=== PATIENT | female | born 1940 | race Caucasian/White ===

== ENCOUNTER 2018-12-23 12:11 | Inpatient (IN) | payer MEDICAID, MEDICARE ==
[~2018-12-23] VITALS: Ht 167.6 cm; Wt 75.7 kg
[~2018-12-23 12:11] MED LIST: ACET-868 PO; ASPI-1152 PO; ATOR40TA PO; BUSP15TA3 PO; CHOL100044 PO; DOCU-141 PO; GLIP10TA11 PO; GLIP5TAB13 PO; METF-440 PO; METO25TA6 PO; SENN-168 PO
--- NOTE | 2018-12-23 12:18 | NUR ---
DR SAXENA AT BEDSIDE FOR EVAL.
--- NOTE | 2018-12-23 12:22 | NUR ---
PT LESLEY TATUM [facility]. PER REPORT, WAS NOTICED TO BE LETHARGIC. UPON ACCUCHECK, BG WAS AROUND 20 WAS GIVEN D10. IMPROVED TO 218. PT GOWNED AND PLACED ON MONITOR. VSS. AWAITING MD ALSTON.
--- NOTE | 2018-12-23 12:34 | NUR ---
RADIOLOGY AT BEDSIDE FOR CHEST XRAY.
[2018-12-23 12:42] LABS: BASOPHILS # (AUTO) 0.1 /CMM (0.0-0.2); EOSINOPHILS % (AUTO) 0.9 % (0.0-6.0); HEMATOCRIT 23 % (33-45); HEMOGLOBIN 7.6 g/dL (11.5-14.8); LYMPHOCYTES # (AUTO) 0.9 /CMM (0.8-4.8); LYMPHOCYTES % (AUTO) 10.4 % (20.0-44.0); MEAN CORPUSCULAR HGB CONC 33 g/dl (31.0-36.0); MEAN CORPUSCULAR VOLUME 87 fL (82-100); MONOCYTES # (AUTO) 0.6 /CMM (0.1-1.30); MONOCYTES % (AUTO) 7.4 % (2.0-12.0); NEUTROPHILS # (AUTO) 6.7 /CMM (1.8-8.9); NEUTROPHILS % (AUTO) 80.3 % (43.0-81.0); PLATELET COUNT (AUTO) 275 /CMM (150-450); RED BLOOD CELL COUNT(AUTO) 2.66 MIL/uL (4.0-5.2); WHITE BLOOD COUNT (AUTO) 8.3 K/uL (4.3-11.0)
[2018-12-23 12:54] LABS: ALANINE AMINOTRANSFERASE 14 U/L (12-78); ALBUMIN 3.2 g/dL (3.4-5.0); ALKALINE PHOSPHATASE 58 U/L (46-116); ASPARTATE AMINOTRANSFERASE 19 U/L (15-37); BILIRUBIN,TOTAL 0.1 mg/dL (0.2-1.0); CALCIUM, SERUM 9.1 mg/dL (8.5-10.1); CARBON DIOXIDE 18 mmol/L (21-32); CHLORIDE 106 mmol/L (98-107); CREATININE 1.8 mg/dL (0.6-1.3); GLUCOSE 162 mg/dL (74-106); POTASSIUM 5.2 mmol/L (3.5-5.1); SODIUM SERUM 136 mmol/L (136-145); TOTAL PROTEIN, SERUM 6.9 g/dL (6.4-8.2); UREA NITROGEN, BLOOD 53 mg/dL (7-18)
[2018-12-23 13:01] LABS: APPEARANCE,URINE Clear (CLEAR); BILIRUBIN,URINE Negative (NEGATIVE); BLOOD, URINE Negative Ery/uL (NEGATIVE); COLOR,URINE Yellow (YELLOW); KETONES,URINE Negative (NEGATIVE); LEUKOCYTE ESTERASE ,URINE Negative (NEGATIVE); NITRITE, URINE Negative (NEGATIVE); PROTEIN,URINE Trace mg/dl (NEGATIVE); UGLUCOSE Negative (NEGATIVE); UROBILINOGEN,URINE 0.2 EU/dL (0.2)
[2018-12-23 13:08] LABS: BACTERIA,URINE None seen /HPF (None Seen); RBC,URINE NONE SEEN /HPF (0-2); SQUAMOUS EPITHELIAL CELL,UR Few /HPF (None Seen); WBC,URINE NONE SEEN /HPF (0-3)
[2018-12-23] MEDS ORDERED: SERT50TA PO (13:33)
[2018-12-23] MEDS ORDERED: MIRT15TA7 PO (13:33)
[2018-12-23] MEDS ORDERED: HYDR-4384 PO (13:33)
--- NOTE | 2018-12-23 13:53 | NUR ---
REPORT GIVEN TO JAZMIN GALLEGOS. AWAITING TRANSFER.
[2018-12-23] MEDS ORDERED: IV NS 0.9% 1,000 ML BAG IV ONE (14:00)
[2018-12-23] MEDS ORDERED: MAG HYDROX/AL HYDROX/SIMETH 30 ML UDC PO PRN (14:30)
[2018-12-23] MEDS ORDERED: ACETAMINOPHEN 325 MG TABLET PO PRN ×2 (14:30)
[2018-12-23] MEDS ORDERED: ONDANSETRON HCL/PF 4 MG/2 ML VIAL IVP PRN (14:30)
[2018-12-23] MEDS ORDERED: HYDROCODONE/APAP 5/325MG 1 EACH TABLET PO PRN (14:30)
[2018-12-23] MEDS ORDERED: Z GUARD REMEDY 2 OZ OINT TP PRN (14:30)
--- NOTE | 2018-12-23 14:30 | NUR ---
RN NOTE PATIENT TRANSFERED FROM ER. NO S/S OF HYPOGLYGEMIA. PATIET ALERT X2-3. DAUGHTER AT BEDSIDE. NO WOUNDS PRESENT ON ADMISSION. NO SCABS PATIENT VITALS WITHIN NORMAL LIMITS. AWAITING ORDERS FROM MD. SAFETY MEASURES IN PLACE. CONTINUE TO MONITOR.
[2018-12-23] MEDS ORDERED: DEXTROSE 50%-WATER 50 ML DISP.SYRIN IV PRN (15:00)
[2018-12-23] MEDS: CHOLECALCIFEROL 1,000 UNIT TABLET (VIT D3) PO SCH (15:37)
[2018-12-23] MEDS: MIRTAZAPINE 15 MG TABLET PO SCH ×2 (15:37→22:06)
[2018-12-23] MEDS: ATORVASTATIN 40 MG TABLET PO SCH (15:37)
[2018-12-23] MEDS: SERTRALINE HCL 50 MG TABLET PO SCH (15:37)
[2018-12-23] MEDS: DOCUSATE SODIUM 100 MG CAPSULE PO SCH ×2 (15:37→18:00)
[2018-12-23] MEDS: ASPIRIN EC 81 MG TABLET.DR PO SCH (15:37)
[2018-12-23] MEDS: METOPROLOL TARTRATE 25 MG TABLET PO SCH ×2 (15:38→17:10)
--- NOTE | 2018-12-23 15:38 | NUR ---
SHOPPING INSPECTOR NOTE RN SCANNED MEDICATION EARLY BECAUSE THERE IS NO COMPUTER AVAILABLE. RN WILL ADMINISTER THE MEDICATION AT 1700 IN ONE HOUR AND 20 MINUTES.
[2018-12-23] MEDS: BLOOD SUGAR DIAGNOSTIC 1 EACH STRIP IN SCH ×3 (15:58→22:04)
[2018-12-23 16:42] VITALS: BP 145/64
[2018-12-23 17:00] VITALS: BP 136/70
[2018-12-23 17:41] LABS: IRON, SERUM 39 ug/dl (50-175); TOTAL IRON BINDING CAPACITY 345 ug/dl (250-450)
[2018-12-23 19:13] LABS: CREATININE, URINE 109.9 MG/DL (30.0-125.0); URINE TOTAL PROTEIN 11.8 mg/dL (0-11.9)
[2018-12-23] MEDS: INSULIN REGULAR, HUMAN 100 UNIT/ML 3 ML VIAL SQ PRN ×2 (19:13→22:10)
--- NOTE | 2018-12-23 19:25 | NUR ---
RN CLOSING NOTE PATIENT ALERT AND ORITND X2-3. SKIN INTACT, SIDE RAILS UP. NO EPISODES OF HYPOGLYCEMIA THIS SHIFT. BLOOD SUGAR PROTCAL FOLLOWED PER MD ORDER. PATIENT STABLE, SAFETY MEASURES IN PLACE. UPDATE DAUGHTER PHONE NUMBER IN REPORT SHEET AND CHART. Addendum: 12/24/18 at 0215 by ELVIRA WRIGHT RN RN OPENING NOTE: PATIENT ALERT AND ORITND X2-3. SKIN INTACT, SIDE RAILS UP. NO EPISODES OF HYPOGLYCEMIA THIS SHIFT. BLOOD SUGAR PROTCAL FOLLOWED PER MD ORDER. PATIENT STABLE, SAFETY MEASURES IN PLACE. WILL CONTINUE TO MONITER.
--- NOTE | 2018-12-23 19:49 | NUR ---
RN CLOSING NOTE PATIENT ALERT AND ORITND X2-3. SKIN INTACT, SIDE RAILS UP. BLOOD SUGAR PROTCAL FOLLOWED PER MD ORDER. PATIENT STABLE, SAFETY MEASURES IN PLACE. WILL CONTINUE TO MONITER AND FOLLOW OUT PLAN OF CARE. .
[2018-12-23 20:00] VITALS: BP 124/54
[2018-12-23 21:00] VITALS: BP 124/54
[2018-12-23 22:00] VITALS: BP 124/54
[2018-12-24] VITALS (8 sets, daily range): BP systolic 98–124; BP diastolic 49–79
--- NOTE | 2018-12-24 06:20 | NUR ---
PT REFUSED BLOOD DRAW. IN BED ASLEEP STATES DOESNT WANT TO BE BOTHERED. TOLD LAB TO COME BACK AT 830 AM.
[2018-12-24] MEDS: IV D5/0.45 NACL 1,000 ML IV PRN (06:27)
--- NOTE | 2018-12-24 06:46 | NUR ---
RN CLOSING NOTE: PATIENT ALERT AND ORITND X2-3. SKIN INTACT, SIDE RAILS UP. MONITERED BLOOD SUGAR PROTCAL FOLLOWED PER MD ORDER. PATIENT STABLE, SAFETY MEASURES IN PLACE. WILL CONTINUE TO MONITER AND FOLLOW OUT PLAN OF CARE.
--- NOTE | 2018-12-24 07:20 | NUR ---
RN INITIAL NOTES PATIENT IN BED, ASLEEP BUT EASILY AROUSABLE. ON 2L NC. PER NOC SHIFT, SOMETIMES PATIENT REMOVES THE NC AND STILL SATS >90%. ON TELE MONITOR, SR. HAS LEFT HAND #20 WITH D5 HALF NS RUNNING AT 75 ML/HR. PENDING OB STOOL. PATIENT HAS NO COMPLAINS OF ANY PAIN NOR SOB AT THIS TIME. CALL LIGHT WITHIN REACH. WILL CONTINUE TO MONITOR
[2018-12-24] MEDS: BLOOD SUGAR DIAGNOSTIC 1 EACH STRIP IN SCH ×4 (08:00→21:03)
--- NOTE | 2018-12-24 08:00 | NUR ---
RN NOTES BS 134, EVEN WITH D5 HALF NS RUNNING AT 75 ML/HR - INSULIN NOT ADMINISTERED, PATIENT REFUSING TO EAT BREAKFAST
[2018-12-24] MEDS: ATORVASTATIN 40 MG TABLET PO SCH (08:55)
[2018-12-24] MEDS: ASPIRIN EC 81 MG TABLET.DR PO SCH (08:56)
[2018-12-24] MEDS: busPIRone 5 MG TABLET PO SCH (08:56)
[2018-12-24] MEDS: SERTRALINE HCL 50 MG TABLET PO SCH (08:56)
[2018-12-24] MEDS: CHOLECALCIFEROL 1,000 UNIT TABLET (VIT D3) PO SCH (08:56)
[2018-12-24] MEDS: DOCUSATE SODIUM 100 MG CAPSULE PO SCH ×2 (08:56→17:33)
[2018-12-24] MEDS: METOPROLOL TARTRATE 25 MG TABLET PO SCH ×2 (08:57→17:34)
[2018-12-24 11:18] LABS: BASOPHILS # (AUTO) 0.1 /CMM (0.0-0.2); BASOPHILS % (AUTO) 0.9 % (0.0-2.0); HEMATOCRIT 22 % (33-45); LYMPHOCYTES # (AUTO) 1.5 /CMM (0.8-4.8); LYMPHOCYTES % (AUTO) 21.1 % (20.0-44.0); MEAN CORPUSCULAR HGB CONC 32 g/dl (31.0-36.0); MEAN CORPUSCULAR VOLUME 86 fL (82-100); MONOCYTES # (AUTO) 0.8 /CMM (0.1-1.30); NEUTROPHILS # (AUTO) 4.6 /CMM (1.8-8.9); PLATELET COUNT (AUTO) 257 /CMM (150-450); RED BLOOD CELL COUNT(AUTO) 2.54 MIL/uL (4.0-5.2); WHITE BLOOD COUNT (AUTO) 7.1 K/uL (4.3-11.0)
[2018-12-24 11:32] LABS: ALANINE AMINOTRANSFERASE 11 U/L (12-78); ALBUMIN 2.9 g/dL (3.4-5.0); ALKALINE PHOSPHATASE 54 U/L (46-116); ASPARTATE AMINOTRANSFERASE 14 U/L (15-37); BILIRUBIN,TOTAL 0.2 mg/dL (0.2-1.0); CARBON DIOXIDE 20 mmol/L (21-32); CHLORIDE 108 mmol/L (98-107); CREATININE 1.7 mg/dL (0.6-1.3); GLUCOSE 148 mg/dL (74-106); PHOSPHORUS 3.1 mg/dL (2.5-4.9); POTASSIUM 5.3 mmol/L (3.5-5.1); SODIUM SERUM 137 mmol/L (136-145); TOTAL PROTEIN, SERUM 6.2 g/dL (6.4-8.2); UREA NITROGEN, BLOOD 46 mg/dL (7-18)
[2018-12-24 11:34] LABS: CHOLESTEROL 124 mg/dL (<200); CREATINE KINASE, TOTAL 19 U/L (26-192); HDL CHOLESTEROL 38 mg/dL (40-60); LDL 74 mg/dL (0-99); TRIGLYCERIDES 74 mg/dL (30-150)
[2018-12-24 12:11] LABS: MAGNESIUM 1.1 mg/dL (1.8-2.4)
[2018-12-24 12:44] LABS: BAND % (MANUAL) 1 % (0.0-5.0); LYMPHOCYTES % (MANUAL) 20 % (16-48); NEUTROPHILS % (MANUAL) 65 (42-76)
[2018-12-24 12:45] LABS: EOSINOPHILS % (MANUAL) 5 % (0-4); MONOCYTES % (MANUAL) 9 % (0-11.0)
[2018-12-24] MEDS: SOD FERRIC GLUC 125 MG in IV NS 0.9% 100 ML IV SCH (14:40)
[2018-12-24 15:00] LABS: IRON, SERUM 27 ug/dl (50-175); TOTAL IRON BINDING CAPACITY 295 ug/dl (250-450)
[2018-12-24] MEDS: Magnesium 1GM/D5W 100ML PREMIX 100 ML IV SCH ×4 (16:24→20:52)
[2018-12-24] MEDS: INSULIN REGULAR, HUMAN 100 UNIT/ML 3 ML VIAL SQ PRN ×2 (17:47→21:13)
--- NOTE | 2018-12-24 18:52 | NUR ---
RN CLOSING NOTES Pt in bed awake and alert, On 2L NC, has a R hand G20, with D5 half NS at 75Ml/Hr last blood sugar was 229 was given 4units insulin coverage, Mg was critically low, HBg was low at 7.0 MD made aware, MD ordered Iron panel and Mg 4g. OB stool still pending and Per MD follow up Hga1c. Bed locked and in lowest position, call light within reach, will endorse to shift mechanic for LEO
--- NOTE | 2018-12-24 19:22 | NUR ---
RN OPENING NOTES: PT IN BED ASLEEP, 2L NC, has R HAND G #20 RUNNING MAG CURRENTLY WITH , WILL CONTINUE TO MONITER BLOOD SUGAR. OB STOOL TO BE COLLECTED THROUGOUT SHIFT. SAFETY MEASURES IN PLACE. WILL CARRY OUT PLAN OF CARE.
[2018-12-24] MEDS: MIRTAZAPINE 15 MG TABLET PO SCH (21:03)
[2018-12-25] VITALS: BP 100/49
--- NOTE | 2018-12-25 00:58 | NUR ---
RECIEVED REPORT FROM LAB THAT ONE BOTTLE OF SET IS RESULTED TO BE GRAM POSITIVE COCCI IN CLUSTERS SEEN ON GRAM STAIN SLIDE READ BY IDENTIFICATION AND SENSITIVITIES TO FOLLOW, WILL ENDORSE TO AM SHIFT TO CARRY OUT POC.
[2018-12-25] MEDS: IV D5/0.45 NACL 1,000 ML IV PRN ×2 (02:19→16:17)
--- NOTE | 2018-12-25 07:15 | NUR ---
RN INITIAL NOTES PATIENT IN BED ASLEEP BUT EASILY AROUSABLE. NO COMPLAINS OF ANY PAIN NOR SOB. ON 2L NC SATING WELL AT 98%. HAS RIGHT HAND #20 WITH D5 HALF NS RUNNING AT 75ML/HR. STILL PENDING OB STOOL SAMPLE. BED LOCKED AND IN LOWEST POSITION CALL LIGHT WITHIN REACH. WILL CONT TO MONITOR
--- NOTE | 2018-12-25 07:54 | NUR ---
RN CLOSING NOTES PATIENT IN BED, E. ON 2L NC. PER NOC SHIFT, SOMETIMES PATIENT REMOVES THE NC AND STILL SATS >90%. ON TELE MONITOR, SR. HAS LEFT HAND #20 WITH D5 HALF NS RUNNING AT 75 ML/HR. PENDING OB STOOL. PATIENT HAS NO COMPLAINS OF ANY PAIN NOR SOB AT THIS TIME. CALL LIGHT WITHIN REACH. WILL ENDORSE TO AM NURSE.
[2018-12-25] MEDS: BLOOD SUGAR DIAGNOSTIC 1 EACH STRIP IN SCH ×4 (07:55→21:30)
[2018-12-25] MEDS: INSULIN REGULAR, HUMAN 100 UNIT/ML 3 ML VIAL SQ PRN ×4 (07:57→22:06)
[2018-12-25 08:00] VITALS: BP 118/51
[2018-12-25] MEDS: busPIRone 5 MG TABLET PO SCH (08:12)
[2018-12-25] MEDS: CHOLECALCIFEROL 1,000 UNIT TABLET (VIT D3) PO SCH (08:12)
[2018-12-25] MEDS: MAGNESIUM HYDROXIDE 30 ML UDC PO PRN ×2 (08:13→16:32)
[2018-12-25] MEDS: ATORVASTATIN 40 MG TABLET PO SCH (08:13)
[2018-12-25] MEDS: METOPROLOL TARTRATE 25 MG TABLET PO SCH ×2 (08:13→16:29)
[2018-12-25] MEDS: DOCUSATE SODIUM 100 MG CAPSULE PO SCH ×2 (08:13→16:28)
[2018-12-25] MEDS: ASPIRIN EC 81 MG TABLET.DR PO SCH (08:13)
[2018-12-25] MEDS: SERTRALINE HCL 50 MG TABLET PO SCH (08:13)
[2018-12-25 09:00] VITALS: BP 118/51
[2018-12-25 12:06] LABS: PTH, INTACT 30 pg/mL (15-65)
[2018-12-25] MEDS: SOD FERRIC GLUC 125 MG in IV NS 0.9% 100 ML IV SCH (14:39)
[2018-12-25 16:00] VITALS: BP 117/69
--- NOTE | 2018-12-25 18:54 | NUR ---
RN CLOSING NOTE PATIENT IN BED AWAKE AND ALERT. IVF RUNNING AT 75ML/HR. ALL MEDS GIVEN. NO COMPLAINS OF PAIN OR SOB. ON 2L NC. OB STOOL STILL PENDING, WAS GIVEN 2 DOSES OF MOM AND COLACE SCHEDULED. LAST BS 206 WAS GIVEN 4UNITS OF INSULIN. PER MD, CONTINUE CARE. BED LOCKED AND IN LOWEST POSITION. CALL LIGHT WITHIN REACH AND WILL ENDORSE TO NOC SHIFT FOR LEO
[2018-12-25] MEDS: MIRTAZAPINE 15 MG TABLET PO SCH (21:30)
[2018-12-26] VITALS: BP 102/50
--- NOTE | 2018-12-26 06:52 | NUR ---
RN CLOSING NOTE PATIENT IN BED ASLEEP SAFETY PRECAUTIONS IN PLACE. CALL LIGHT IN REACH. BED LOCKED AND LOW. IVF RUNNING AT 75ML/HR. ALL MEDS GIVEN. NO COMPLAINS OF PAIN OR SOB. ON 2L NC. OB STOOL STILL PENDING, NO BM DURING MY SHIFT. . LAST BS 206 WAS GIVEN 4UNITS OF INSULIN. PER MD, CONTINUE CARE. BED LOCKED AND IN LOWEST POSITION. CALL LIGHT WITHIN REACH AND WILL ENDORSE TO NOC SHIFT FOR LEO Addendum: 12/26/18 at 0656 by ELVIRA WRIGHT RN RN CLOSING NOTE PATIENT IN BED ASLEEP SAFETY PRECAUTIONS IN PLACE. CALL LIGHT IN REACH. BED LOCKED AND LOW. IVF RUNNING AT 75ML/HR.IV SITE CHANGED TO L FOREARM 22 G. ALL MEDS GIVEN. NO COMPLAINS OF PAIN OR SOB. ON 2L NC. OB STOOL STILL PENDING, NO BM DURING MY SHIFT. . LAST BS 228 WCONTINUE CARE.CALL LIGHT IN REACH SAFETY PRECAUTIONS IN PLACE. WILL ENDORSE TO PM SHIFT.
[2018-12-26 08:00] VITALS: BP 128/62
--- NOTE | 2018-12-26 08:00 | NUR ---
RN NOTES RECEIVED PATIENT IN THE BED SLEEPING, AROUSE WHEN CALLED NAME OR TOUCHED. BS-163 MG/DL, PATIENT HAS NO ACUTE RESPIRATORY DISTRESS, REFUSED BREAKFAST. INFUSING D51/2 NS AT 75 ML/HR INTACT ON LEFT FA. PATIENT TURN AND REPOSTION SELF IN THE BED. CALL LIGHT WITHIN TO REACH. PATIENT USING DIAPER, SAFETY PRECAUTION MAINTAINED ALL THE TIME.
[2018-12-26] MEDS: BLOOD SUGAR DIAGNOSTIC 1 EACH STRIP IN SCH ×4 (08:06→21:53)
[2018-12-26] MEDS ORDERED: FEE PK DOSING 1 MIN EA MC ONE (09:54)
[2018-12-26] MEDS ORDERED: VANCOMYCIN 1 GM in IV D5W 250 ML IV SCH (10:00)
[2018-12-26] MEDS: IV D5/0.45 NACL 1,000 ML IV PRN (10:35)
[2018-12-26] MEDS: SERTRALINE HCL 50 MG TABLET PO SCH (10:38)
[2018-12-26] MEDS: DOCUSATE SODIUM 100 MG CAPSULE PO SCH ×2 (10:38→16:31)
[2018-12-26] MEDS: ATORVASTATIN 40 MG TABLET PO SCH (10:38)
[2018-12-26] MEDS: CHOLECALCIFEROL 1,000 UNIT TABLET (VIT D3) PO SCH (10:38)
[2018-12-26] MEDS: busPIRone 5 MG TABLET PO SCH (10:39)
[2018-12-26] MEDS: METOPROLOL TARTRATE 25 MG TABLET PO SCH ×2 (10:40→16:45)
[2018-12-26] MEDS: ASPIRIN EC 81 MG TABLET.DR PO SCH (10:40)
--- NOTE | 2018-12-26 10:59 | NUR ---
RN NOTES STARTED VANCOMYCIN INFUSION AT THIS TIME 250 ML/HR , CONTINUED MONITORING.
[2018-12-26] MEDS: INSULIN REGULAR, HUMAN 100 UNIT/ML 3 ML VIAL SQ PRN ×3 (12:45→21:59)
--- NOTE | 2018-12-26 12:46 | NUR ---
RN NOTES BS-190 MG/DL COVERAGE GIVEN, PATIENT EATING LUNCH. MORE AWAKE, ALSO ADMINISTERED SCHEDULED MEDICATION. CALL LIGHT WITHIN TO REACH, SAFETY PRECAUTION MAINTAINED ALL THE TIME.
[2018-12-26] MEDS: SOD FERRIC GLUC 125 MG in IV NS 0.9% 100 ML IV SCH (15:48)
[2018-12-26 16:46] VITALS: BP 116/55
--- NOTE | 2018-12-26 18:30 | NUR ---
RN NOTES PATIENT STABLE, BS-158 MG/DL COVERAGE GIVEN, PATIENT HAS NO ACUTE RESPIRATORY DISTRESS, V/S STABLE. PATIENT TURN AND REPOSTION SELF IN THE BED. INCONTINENT APPLIED Z-GUARD. ADMINISTERED SCHEDULED MEDICATION. CALL LIGHT WITHIN TO REACH. ENDORSED ONCOMING NURSE FOLLOW PLAN OF CARE.
[2018-12-26 20:00] VITALS: BP 109/52
--- NOTE | 2018-12-26 20:00 | NUR ---
MS RN NOTE PT IN BED AWAKE. A/O X 4, NO SOB, NO DISTRESS OR DISCOMFORT NOTED. PT DENIES PAIN. ALL NEEDS ATTENDED. RFA IVF D5 1/2 NS INFUSING AT 75 ML/HR, NO S/S OF INFILTRATION NOTED. SIDE RAILS UP X 2 AND CALL LIGHT WITHIN REACH. J
[2018-12-26] MEDS: MIRTAZAPINE 15 MG TABLET PO SCH (21:53)
--- NOTE | 2018-12-26 23:00 | NUR ---
MS RN NOTE PT IN BED ASLEEP, EASILY AROUSABLE. NO DISTRESS OR DISCOMFORT NOTED. DENIES PAIN. ALL NEEDS ATTENDED. REPORT GIVEN TO NURSE EUBANKS CONTINUE TO CARE.
[2018-12-27] VITALS (7 sets, daily range): BP systolic 105–157; BP diastolic 45–82
--- NOTE | 2018-12-27 01:32 | NUR ---
REPORT RECEIVED FROM BECKY YOUNG. WILL CONTINUE CARE. Addendum: 12/27/18 at [address] RN TIME AND DATE 12/26 7300
[2018-12-27] MEDS: IV D5/0.45 NACL 1,000 ML IV PRN (04:22)
--- NOTE | 2018-12-27 06:17 | NUR ---
RN MS CLOSING NOTE PT REMAINS SLEEPING, BREATHING EVEN AND UNLABORED ON RA. NO COMPLAIN OF PAIN OR DISCOMFORT AT THE MOMENT. IV ACCESS ON THE L WRIST 22G WITH D51/2NS@ 75ML/HR. BED IN LOWEST LOCKED POSITION, CALL LIGHT WITHIN REACH AT ALL TIMES, WILL ENDORSE TO DAY NURSE FOR LEO.
[2018-12-27 06:44] LABS: CALCIUM, SERUM 8.9 mg/dL (8.5-10.1); CARBON DIOXIDE 22 mmol/L (21-32); CHLORIDE 108 mmol/L (98-107); CREATININE 1.3 mg/dL (0.6-1.3); GLUCOSE 153 mg/dL (74-106); POTASSIUM 5.1 mmol/L (3.5-5.1); SODIUM SERUM 140 mmol/L (136-145); UREA NITROGEN, BLOOD 26 mg/dL (7-18)
--- NOTE | 2018-12-27 07:30 | NUR ---
MS/RN OPENING NOTES RECEIVED PATIENT IN BED SLEEPING COMFORTABLY. EASILY AROUSABLE. ALERT AND ORIENTED X4. NO PAIN OR ACUTE DISTRESS AT THIS TIME. RESPIRATION EVEN AND UNLABORED. SKIN IS DRY WARM TO TOUCH. NOTED WITH LEFT WRIST #22G. INTACT AND PATENT. FLUSHING WELL. NO S/S OF INFECTION OR INFILTRATION. PATIENT ABLE TO TOLERATE IVF WELL. ALL NEEDS ANTICIPATED. CALL LIGHT WITHIN REACHED. BED LOCKED AND IN LOWEST POSITION. SAFETY MAINTAINED. CONTINUE TO MONITOR CLOSELY.
[2018-12-27] MEDS: BLOOD SUGAR DIAGNOSTIC 1 EACH STRIP IN SCH ×4 (07:42→22:18)
[2018-12-27 08:10] LABS: *SPE A/G RATIO 1.1 (0.7-1.7); *SPE ALBUMIN 3.1 g/dL (2.9-4.4); *SPE ALPHA-1-GLOBULIN 0.2 g/dL (0.0-0.4); *SPE ALPHA-2-GLOBULIN 0.7 g/dL (0.4-1.0); *SPE BETA GLOBULIN 1.2 g/dL (0.7-1.3); *SPE GLOBULIN, TOTAL 2.9 g/dL (2.2-3.9); *SPE M-SPIKE Not Observed g/dL (Not Observed); *SPEGAMMA GLOBULIN 0.8 g/dL (0.4-1.8)
[2018-12-27] MEDS: ASPIRIN EC 81 MG TABLET.DR PO SCH (08:10)
[2018-12-27] MEDS: busPIRone 5 MG TABLET PO SCH (08:10)
[2018-12-27] MEDS: CHOLECALCIFEROL 1,000 UNIT TABLET (VIT D3) PO SCH (08:10)
[2018-12-27] MEDS: DOCUSATE SODIUM 100 MG CAPSULE PO SCH ×2 (08:10→16:53)
[2018-12-27] MEDS: SERTRALINE HCL 50 MG TABLET PO SCH (08:11)
[2018-12-27] MEDS: ATORVASTATIN 40 MG TABLET PO SCH (08:11)
[2018-12-27] MEDS: METOPROLOL TARTRATE 25 MG TABLET PO SCH ×2 (08:11→16:53)
[2018-12-27] MEDS: INSULIN REGULAR, HUMAN 100 UNIT/ML 3 ML VIAL SQ PRN ×3 (08:13→22:18)
[2018-12-27] MEDS: VANCOMYCIN 0.75 GM in IV D5W 250 ML IV SCH (09:43)
[2018-12-27 12:38] LABS: BASOPHILS # (AUTO) 0.1 /CMM (0.0-0.2); BASOPHILS % (AUTO) 0.9 % (0.0-2.0); EOSINOPHILS % (AUTO) 3.4 % (0.0-6.0); HEMATOCRIT 21 % (33-45); LYMPHOCYTES # (AUTO) 1.3 /CMM (0.8-4.8); LYMPHOCYTES % (AUTO) 21.5 % (20.0-44.0); MEAN CORPUSCULAR HGB CONC 33 g/dl (31.0-36.0); MEAN CORPUSCULAR VOLUME 87 fL (82-100); MONOCYTES # (AUTO) 0.7 /CMM (0.1-1.30); MONOCYTES % (AUTO) 10.8 % (2.0-12.0); NEUTROPHILS # (AUTO) 3.9 /CMM (1.8-8.9); NEUTROPHILS % (AUTO) 63.4 % (43.0-81.0); PLATELET COUNT (AUTO) 266 /CMM (150-450); RED BLOOD CELL COUNT(AUTO) 2.41 MIL/uL (4.0-5.2); WHITE BLOOD COUNT (AUTO) 6.2 K/uL (4.3-11.0)
[2018-12-27 13:03] LABS: HEMOGLOBIN 6.9 g/dL (11.5-14.8)
[2018-12-27 13:22] LABS: EOSINOPHILS % (MANUAL) 3 % (0-4); LYMPHOCYTES % (MANUAL) 25 % (16-48); MONOCYTES % (MANUAL) 6 % (0-11.0); NEUTROPHILS % (MANUAL) 63 (42-76)
[2018-12-27 13:23] LABS: MYELOCYTES % 3 % (0-0)
[2018-12-27] MEDS: SOD FERRIC GLUC 125 MG in IV NS 0.9% 100 ML IV SCH (14:02)
--- NOTE | 2018-12-27 18:30 | NUR ---
MS/RN CLOSING NOTES PATIENT REMAINS IN STABLE CONDITION. PROVIDED COMFORT AND SAFETY. NO PAIN OR ACUTE DISTRESS AT THIS TIME. RESPIRATION EVEN AND UNLABORED. SKIN IS DRY WARM TO TOUCH. PATIENT ABLE TO TOLERATE MEALS AND MEDS WELL. CONSENT WAS GIVEN BY DAUGHTER TO PROVIDE BLOOD TRANSFUSION. ENDORSED TO PM NURSE ABOUT ADMINISTERING BLOOD TO THE PATIENT. ALSO, TO COLLECT STOOL FOR OB. PATIENT DID NOT HAVE ANY BM DURING THE DAY. ALL NEEDS ANTICIPATED. KEPT CLEAN AND DRY. CALL LIGHT WITHIN REACHED. BED LOCKED AND IN LOWEST POSITION. SAFETY MAINTAINED. WILL CONTINUE TO MONITOR CLOSELY. ENDORSED TO PM NURSE FOR LEO.
--- NOTE | 2018-12-27 19:15 | NUR ---
MS RN NOTES RECEIVED PT IN BED AWAKE AND ABLE TO MAKE NEEDS KNOWN. PT A/O X3. RESPIRATIONS EVEN AND UNLABORED WITH NO S/S OF ACUTE DISTRESS OR SOB NOTED. PT ON RA TOLERATING WELL SATING @98%. NO COMPLAINTS OF PAIN AT THIS TIME. PT WITH LWRIST #22G PATENT AND INTACT RUNNING D5 1/2 NS @75ML/HR AND TOLERATING WELL. NO S/S OF INFECTION OR INFILTRATION NOTED. SAFETY MEASURES IN PLACE WITH BED IN LOWEST LOCKED POSITION WITH SIDE RAILS UP X2. CALL LIGHT WITHIN REACH. WILL CONTINUE TO MONITOR.
[2018-12-27] MEDS: MIRTAZAPINE 15 MG TABLET PO SCH (22:08)
[2018-12-28] VITALS (7 sets, daily range): BP systolic 126–141; BP diastolic 51–61
[2018-12-28] MEDS: IV D5/0.45 NACL 1,000 ML IV PRN (04:12)
[2018-12-28 06:37] LABS: BASOPHILS # (AUTO) 0.1 /CMM (0.0-0.2); BASOPHILS % (AUTO) 0.8 % (0.0-2.0); EOSINOPHILS % (AUTO) 3.6 % (0.0-6.0); HEMATOCRIT 25 % (33-45); HEMOGLOBIN 8.1 g/dL (11.5-14.8); LYMPHOCYTES # (AUTO) 1.8 /CMM (0.8-4.8); LYMPHOCYTES % (AUTO) 25.3 % (20.0-44.0); MEAN CORPUSCULAR HGB CONC 33 g/dl (31.0-36.0); MEAN CORPUSCULAR VOLUME 86 fL (82-100); MONOCYTES # (AUTO) 0.9 /CMM (0.1-1.30); MONOCYTES % (AUTO) 12.2 % (2.0-12.0); NEUTROPHILS # (AUTO) 4.1 /CMM (1.8-8.9); NEUTROPHILS % (AUTO) 58.1 % (43.0-81.0); PLATELET COUNT (AUTO) 245 /CMM (150-450); RED BLOOD CELL COUNT(AUTO) 2.86 MIL/uL (4.0-5.2); WHITE BLOOD COUNT (AUTO) 7.1 K/uL (4.3-11.0)
[2018-12-28 06:59] LABS: CALCIUM, SERUM 8.5 mg/dL (8.5-10.1); CARBON DIOXIDE 21 mmol/L (21-32); CHLORIDE 111 mmol/L (98-107); CREATININE 1.2 mg/dL (0.6-1.3); GLUCOSE 132 mg/dL (74-106); POTASSIUM 4.3 mmol/L (3.5-5.1); SODIUM SERUM 142 mmol/L (136-145); UREA NITROGEN, BLOOD 24 mg/dL (7-18)
--- NOTE | 2018-12-28 07:03 | NUR ---
MS RN NOTES PT IN BED ASLEEP BUT EASILY AWOKEN VERBALLY OR BY TOUCH. PT A/O 3 AND ABLE TO MAKE NEEDS KNOWN. RESPIRATIONS EVEN AND UNLABORED WITH NO S/S OF ACUTE DISTRESS OR SOB NOTED THROUGHOUT SHIFT. PT S/P BLOOD TRANSFUSION, TOLERATED WELL. NO COMPLAINTS OF PAIN AT THIS TIME. PT WITH LWRIST #22G PATENT AND INTACT AND SL. PT ALSO WITH BEATRICE MIDLINE RUNNING D5 1/2 NS @75ML/HR AND TOLERATING WELL. NO S/S OF INFECTION OR INFILTRATION NOTED. SAFETY MEASURES IN PLACE WITH BED IN LOWEST LOCKED POSITION WITH SIDE RAILS UP X2. PT KEPT CLEAN, DRY, AND COMFORTABLE. CALL LIGHT WITHIN REACH. WILL ENDORSE TO ONCOMING NURSE FOR LEO.
--- NOTE | 2018-12-28 08:00 | NUR ---
MS/RN OPENING NOTES RECEIVED PATIENT IN BED SLEEPING COMFORTABLY. EASILY AROUSABLE. ALERT AND ORIENTED X4. NO PAIN OR ACUTE DISTRESS AT THIS TIME. RESPIRATION EVEN AND UNLABORED. SKIN IS DRY WARM TO TOUCH. NOTED WITH LEFT WRIST #22G. INTACT AND PATENT. FLUSHING WELL. NO S/S OF INFECTION OR INFILTRATION. PATIENT ABLE TO TOLERATE IVF WELL. ALL NEEDS ANTICIPATED. CALL LIGHT WITHIN REACHED. BED LOCKED AND IN LOWEST POSITION. NO S/S OF HYPO/HYPERGLYCEMIA.SAFETY MAINTAINED. CONTINUE TO MONITOR CLOSELY.
[2018-12-28] MEDS: BLOOD SUGAR DIAGNOSTIC 1 EACH STRIP IN SCH ×3 (08:40→16:26)
[2018-12-28] MEDS: busPIRone 5 MG TABLET PO SCH (10:02)
[2018-12-28] MEDS: ATORVASTATIN 40 MG TABLET PO SCH (10:02)
[2018-12-28] MEDS: SERTRALINE HCL 50 MG TABLET PO SCH (10:02)
[2018-12-28] MEDS: DOCUSATE SODIUM 100 MG CAPSULE PO SCH ×2 (10:02→16:48)
[2018-12-28] MEDS: ASPIRIN EC 81 MG TABLET.DR PO SCH (10:02)
[2018-12-28] MEDS: METOPROLOL TARTRATE 25 MG TABLET PO SCH ×2 (10:03→16:49)
[2018-12-28] MEDS: CHOLECALCIFEROL 1,000 UNIT TABLET (VIT D3) PO SCH (10:03)
[2018-12-28] MEDS: VANCOMYCIN 0.75 GM in IV D5W 250 ML IV SCH (10:55)
[2018-12-28] MEDS: MAGNESIUM HYDROXIDE 30 ML UDC PO PRN (11:26)
[2018-12-28] MEDS: INSULIN REGULAR, HUMAN 100 UNIT/ML 3 ML VIAL SQ PRN ×2 (11:29→16:50)
[2018-12-28] MEDS: SOD FERRIC GLUC 125 MG in IV NS 0.9% 100 ML IV SCH (14:45)
--- NOTE | 2018-12-28 17:25 | NUR ---
DISCHARGED PT TO [facility] WITH STABLE V/S VIA AMBULANCE.DENIES ANY PAIN OR DISTRESS.IV H/L TO LT WRIST AND BEATRICE MIDLINE REMOVED WITHOUT BLEEDING NOTED.REPORT CALLED IN TO ROSY ACUÑA FRUIT PACKER OF [facility].
== END 2018-12-28 17:25 | DRG 420 ==
LOC: ER 12:11 → TELE1 13:52 → MEDSG1 12-24 08:59
PROVIDERS: ADMIT Internal Medicine; ATTEND Internal Medicine
PROC: 30233N1 Transfusion of Nonautologous Red Blood Cells into Peripheral Vein, Percutaneous Approach (ICD-10-PCS; principal; 2018-12-27)
PROC: 05H533Z Insertion of Infusion Device into Right Subclavian Vein, Percutaneous Approach (ICD-10-PCS; principal; 2018-12-27)
DX: E11.649 Type 2 diabetes mellitus with hypoglycemia without coma (principal); N17.0 Acute kidney failure with tubular necrosis; G93.41 Metabolic encephalopathy; E86.0 Dehydration; E87.5 Hyperkalemia; D63.8 Anemia in other chronic diseases classified elsewhere; E78.5 Hyperlipidemia, unspecified; F03.90 Unspecified dementia, unspecified severity, without behavioral disturbance, psychotic disturbance, mood disturbance, and anxiety; F32.9 Major depressive disorder, single episode, unspecified; F41.9 Anxiety disorder, unspecified; R53.1 Weakness; Z79.84 Long term (current) use of oral hypoglycemic drugs; I10 Essential (primary) hypertension
CPT/HCPCS: 36415; 71045-TC; 76770-TC; 80048-TC; 80053-TC; 80061-TC; 80076-TC; 80202-TC; 81000-TC; 82550-TC; 82570-TC; 82962-TC; 83540-TC; 83605-TC; 83735-TC; 83970; 84100-TC; 84155; 84155-TC; 84165; 84300-TC; 84484-TC; 85025-TC; 85730-TC; 86850-TC; 86921-TC; 87040-TC; 87081-TC; 87086-TC; 94799-TC; 97110-TC; 97116-TC; 97530-TC; G0378; J1815; J2916; J3370; J3475; J3490; J7030; J7042; J7050; J7060; P9016-BL

== ENCOUNTER 2019-04-30 17:48 | Emergency (ER) | payer MEDICARE, MEDICAID ==
[~2019-04-30] VITALS: Ht 160 cm; Wt 72.6 kg
[~2019-04-30 17:48] MED LIST changes: -GLIP5TAB13 PO; +HYDR-4384 PO; +MIRT15TA7 PO; -SENN-168 PO; +SERT50TA PO
--- NOTE | 2019-04-30 17:50 | NUR ---
PT SONIYA SANDOVAL 84 from [facility] "Dizzy/Syncopal episode, PT IS AAOX2, NOT IN RESPIRATORY DISTRESS, HOOKED TO MONITOR, KEPT RESTED AND COMFORTABLE, WILL CONTINUE TO MONITOR.
--- NOTE | 2019-04-30 17:54 | NUR ---
AT BEDSIDE FOR EVAL.
--- NOTE | 2019-04-30 18:30 | NUR ---
PT IV LINE ESTABLISHED, BLOOD DRAWN AND SENT TO LAB.
[2019-04-30 18:35] LABS: BASOPHILS % (AUTO) 0.6 % (0.0-2.0); EOSINOPHILS % (AUTO) 1.9 % (0.0-6.0); HEMATOCRIT 34 % (33-45); LYMPHOCYTES # (AUTO) 1.4 /CMM (0.8-4.8); LYMPHOCYTES % (AUTO) 18.9 % (20.0-44.0); MEAN CORPUSCULAR HGB CONC 33 g/dl (31.0-36.0); MEAN CORPUSCULAR VOLUME 93 fL (82-100); MONOCYTES # (AUTO) 0.7 /CMM (0.1-1.30); NEUTROPHILS # (AUTO) 5.1 /CMM (1.8-8.9); NEUTROPHILS % (AUTO) 68.6 % (43.0-81.0); PLATELET COUNT (AUTO) 260 /CMM (150-450); RED BLOOD CELL COUNT(AUTO) 3.63 MIL/uL (4.0-5.2); WHITE BLOOD COUNT (AUTO) 7.4 K/uL (4.3-11.0)
[2019-04-30 18:43] LABS: CALCIUM, SERUM 10.6 mg/dL (8.5-10.1); CREATININE 1.1 mg/dL (0.6-1.3); POTASSIUM 4.9 mmol/L (3.5-5.1)
[2019-04-30 18:49] LABS: ALBUMIN 3.6 g/dL (3.4-5.0); BILIRUBIN,DIRECT 0.1 mg/dL (0.0-0.2); BILIRUBIN,TOTAL 0.3 mg/dL (0.2-1.0); TOTAL PROTEIN, SERUM 7.5 g/dL (6.4-8.2)
--- NOTE | 2019-04-30 19:03 | NUR ---
FINANCIAL INVESTMENT MANAGER AT BEDSIDE FOR XRAY.
--- NOTE | 2019-04-30 19:14 | NUR ---
REPORT GIVEN TO ROSY EUBANKS FOR LEO.
[2019-04-30] MEDS ORDERED: IV NS 0.9% 1,000 ML BAG IV ONE (19:30)
--- NOTE | 2019-04-30 20:21 | NUR ---
[facility] [id number] ETA TRIP #[id number]
--- NOTE | 2019-04-30 21:00 | NUR ---
CALLED IN REPORT TO JUNE GALLEGOS AT [facility].
--- NOTE | 2019-04-30 22:09 | NUR ---
PICKED UP BY AMBULANCE, REPORT GIVEN TO EMT
[2019-04-30 22:10] VITALS: BP 133/56
== END 2019-04-30 22:11 ==
LOC: ER 17:51
DX: E11.65 Type 2 diabetes mellitus with hyperglycemia (principal); E86.0 Dehydration; I10 Essential (primary) hypertension; E78.00 Pure hypercholesterolemia, unspecified; Z79.899 Other long term (current) drug therapy; Z79.84 Long term (current) use of oral hypoglycemic drugs; Z79.82 Long term (current) use of aspirin
CPT/HCPCS: 36415; 70450; 71045; 80048; 80076; 85025; 93005; 96360; 99284; J7030

== ENCOUNTER 2020-03-08 14:12 | Inpatient (IN) | payer MEDICARE, MEDICAID ==
[~2020-03-08] VITALS: Ht 152.4 cm; Wt 66.7 kg
[~2020-03-08 14:12] MED LIST changes: -ASPI-1152 PO; +ASPI-1420 PO
--- NOTE | 2020-03-08 14:37 | NUR ---
LESLEY FROM [facility]; SENT BY PCP AT THE FACILITY FOR POSSIBLE DEHYDRATION, WEAKNESS AND DIARRHEA. TO ER BED 4, HOOKED TO MONITOR, CHANGED TO HOSP GOWN, WARM BLANKET PROVIDED, PATIENT AAO x 2, BREATHING EVEN AND UNLABORED. AWAITING MD ALSTON
--- NOTE | 2020-03-08 14:50 | NUR ---
DR YOUNGBLOOD AT BEDSIDE
[2020-03-08] MEDS ORDERED: IV NS 0.9% 1,000 ML BAG IV ONE (15:00)
[2020-03-08] MEDS ORDERED: ONDA-97 SL (15:20)
[2020-03-08] MEDS ORDERED: GLIM1TAB18 PO (15:20)
[2020-03-08] MEDS ORDERED: LOPE2CAP40 PO (15:20)
[2020-03-08] MEDS ORDERED: MEGE800O PO (15:20)
[2020-03-08 15:34] LABS: BASOPHILS # (AUTO) 0.1 /CMM (0.0-0.2); BASOPHILS % (AUTO) 0.8 % (0.0-2.0); EOSINOPHILS % (AUTO) 0.7 % (0.0-6.0); HEMATOCRIT 21 % (33-45); LYMPHOCYTES # (AUTO) 0.8 /CMM (0.8-4.8); LYMPHOCYTES % (AUTO) 9.2 % (20.0-44.0); MEAN CORPUSCULAR HGB CONC 29 g/dl (31.0-36.0); MEAN CORPUSCULAR VOLUME 68 fL (82-100); MONOCYTES # (AUTO) 0.5 /CMM (0.1-1.30); MONOCYTES % (AUTO) 5.8 % (2.0-12.0); NEUTROPHILS # (AUTO) 7.2 /CMM (1.8-8.9); NEUTROPHILS % (AUTO) 83.5 % (43.0-81.0); PLATELET COUNT (AUTO) 346 /CMM (150-450); RED BLOOD CELL COUNT(AUTO) 3.11 MIL/uL (4.0-5.2); WHITE BLOOD COUNT (AUTO) 8.6 K/uL (4.3-11.0)
[2020-03-08 15:50] LABS: ALANINE AMINOTRANSFERASE 12 U/L (12-78); ALBUMIN 3.5 g/dL (3.4-5.0); ALKALINE PHOSPHATASE 43 U/L (46-116); ASPARTATE AMINOTRANSFERASE 15 U/L (15-37); BILIRUBIN,DIRECT 0.1 mg/dL (0.0-0.2); BILIRUBIN,TOTAL 0.2 mg/dL (0.2-1.0); CALCIUM, SERUM 9.2 mg/dL (8.5-10.1); CARBON DIOXIDE 26 mmol/L (21-32); CHLORIDE 104 mmol/L (98-107); CREATININE 1.3 mg/dL (0.6-1.3); GLUCOSE 159 mg/dL (74-106); POTASSIUM 5.3 mmol/L (3.5-5.1); SODIUM SERUM 139 mmol/L (136-145); TOTAL PROTEIN, SERUM 7.1 g/dL (6.4-8.2); UREA NITROGEN, BLOOD 25 mg/dL (7-18)
--- NOTE | 2020-03-08 15:57 | NUR ---
COVID SWAB PCR DONE AND SENT TO LAB
[2020-03-08 16:00] LABS: HEMOGLOBIN 6.1 g/dL (11.5-14.8)
--- NOTE | 2020-03-08 16:09 | NUR ---
PATIENT SIGNED CONSENT FOR BLOOD TRANSFUSION
--- NOTE | 2020-03-08 16:12 | NUR ---
CALLED [facility], PAGED DR LAINEZ
--- NOTE | 2020-03-08 16:39 | NUR ---
BED 208-1 TELE
--- NOTE | 2020-03-08 17:21 | NUR ---
REPORT GIVEN TO EFREN GALLEGOS OF TELE UNIT
[2020-03-08] MEDS ORDERED: Z GUARD REMEDY 2 OZ OINT TP PRN (18:00)
[2020-03-08] MEDS ORDERED: MAG HYDROX/AL HYDROX/SIMETH 30 ML UDC PO PRN (18:00)
[2020-03-08] MEDS ORDERED: ONDANSETRON HCL/PF 4 MG/2 ML VIAL IVP PRN (18:00)
[2020-03-08] MEDS ORDERED: MAGNESIUM HYDROXIDE 30 ML UDC PO PRN (18:00)
[2020-03-08] MEDS ORDERED: HYDROCODONE/APAP 5/325MG TABLET PO PRN (18:00)
[2020-03-08] MEDS ORDERED: DEXTROSE 50%-WATER 50 ML DISP.SYRIN IV PRN (18:00)
[2020-03-08] MEDS ORDERED: ACETAMINOPHEN 325 MG TABLET PO PRN (18:00)
[2020-03-08 18:48] LABS: IRON, SERUM 13 ug/dl (50-175); TOTAL IRON BINDING CAPACITY 349 ug/dl (250-450)
--- NOTE | 2020-03-08 19:30 | NUR ---
TELE/RN OPENING NOTES NEW ADMISSION NOTES RECEIVED PATIENT IN BED, ALER TO SELF BUT ABLE TO RESPOND WITH SIMPLE ANSWER, FAMILY CALLED AND SPOKE WITH YASH, AWARE ABOUT PATIENT AND INVOLVE WITH CARE, DOCTOR MIGEL IS THE ACCEPTING DR. PATIENT WITH DX OF ANEMIA, SKIN ASSESSED WITH SKIN TEAR ON RIGHT ELBOW AND MID THROAT/CHEST. EDEMA ON BILATERAL FEET, PROVIDED OXYGEN FOR COMFORT, AWAITING AND PENDING RESULT OF COVID RAPID, HGB LEVEL LOW AT 6.1 AND RECHECKED. WITH ORDER FOR PRBC 1 UNIT. BELONGINGS CHECK AND CALL LIGHTS PROVIDED, BED LOCKED, MONITORED FOR ANY CHANGES. IV SITE ON RIGHT HAND PATENT. TO MONITOR.
--- NOTE | 2020-03-08 19:35 | NUR ---
BETSY THE DAUGHTER INVOLVED AND VERBAL CONSENT OBTAINED FOR BLOOD TRANSFUSION.
[2020-03-08 20:00] VITALS: BP 136/67
[2020-03-08] MEDS: IV NS 0.9% 1,000 ML IV PRN (20:08)
[2020-03-08] MEDS: PANTOPRAZOLE 40 MG VIAL IV SCH (21:02)
[2020-03-08 21:52] LABS: HEMOGLOBIN 5.6 g/dL (11.5-14.8)
[2020-03-08] MEDS ORDERED: ZOLPIDEM TARTRATE 5 MG TABLET PO PRN (22:00)
--- NOTE | 2020-03-08 22:05 | NUR ---
RECEIVED FROM LAB CARMELITA SAINI FOR CRITICAL LAB OF HGB LEVEL AT 5.6 AND HCT AT 19. ORDER TO TRANSFUSE 2 UNITS PRBC.
[2020-03-08] MEDS: BLOOD SUGAR DIAGNOSTIC 1 EACH STRIP VI SCH (22:34)
[2020-03-08 23:04] VITALS: BP 138/84
--- NOTE | 2020-03-08 23:10 | NUR ---
TELE/RN NOTES ONE UNIT PRBC VERIFIED BY ANOTHER RN YASH, CONSENT SIGNED VERBAL RECEIVED FROM DAUGHTER BETSY AND VERBAL OBTAINED FROM MD LAINEZ, PATIENT ALERT, ORIENTED, MONITORING FOR ANY CHANGES.
[2020-03-08 23:21] VITALS: BP 110/70
[2020-03-08 23:45] VITALS: BP 133/78
[2020-03-09] VITALS (16 sets, daily range): BP systolic 96–162; BP diastolic 49–82
--- NOTE | 2020-03-09 01:54 | NUR ---
ONE PRBC UNIT BLOOD TRANSFUSED, VITAL SIGNS CHECK, PATIENT ALERT X2, ABLE TO PARTICIPATE WITH CARE. MONITORING FOR ANY CHANGES.
--- NOTE | 2020-03-09 02:47 | NUR ---
SECOND UNIT PRBC FOR TRANSFUSION AND VERIFIED BY ANOTHER RN YASH, PATIENT ALERT, ORIENTED, VITAL SIGNS CHECK AND NO FEVER. RESPIRATIONS EVEN AND UNLABORED.
[2020-03-09] MEDS: BLOOD SUGAR DIAGNOSTIC 1 EACH STRIP VI SCH ×4 (05:21→21:20)
--- NOTE | 2020-03-09 05:24 | NUR ---
blood sugar 119
--- NOTE | 2020-03-09 06:24 | NUR ---
TELE/RN NOTES PATIENT ABLE TO SLEEP FEW HOURS, RESPIRATIONS EVEN AND UNLABORED,ATTENDED ALL NEEDS, ABLE TO TURN SELF, KEPT WARM, IV FLUIDS INFUSED AND BLOOD TRANSFUSION ADMINISTERED, MONITORING FOR ANY S/S OF ADVERSE REACTION, VITAL SIGNS WITHIN NORMAL RANGE. ON MCGREGOR DRAINING YELLOW COLOR URINE, TO MONITOR. BED LOCKED, CALL LIGHTS WITHIN REACH.
[2020-03-09 08:22] LABS: BASOPHILS % (AUTO) 0.4 % (0.0-2.0); EOSINOPHILS % (AUTO) 3.3 % (0.0-6.0); HEMATOCRIT 29 % (33-45); HEMOGLOBIN 9.2 g/dL (11.5-14.8); LYMPHOCYTES # (AUTO) 1.1 /CMM (0.8-4.8); LYMPHOCYTES % (AUTO) 16.4 % (20.0-44.0); MEAN CORPUSCULAR HGB CONC 32 g/dl (31.0-36.0); MEAN CORPUSCULAR VOLUME 73 fL (82-100); MONOCYTES # (AUTO) 0.6 /CMM (0.1-1.30); MONOCYTES % (AUTO) 8.8 % (2.0-12.0); NEUTROPHILS # (AUTO) 4.7 /CMM (1.8-8.9); NEUTROPHILS % (AUTO) 71.1 % (43.0-81.0); PLATELET COUNT (AUTO) 288 /CMM (150-450); RED BLOOD CELL COUNT(AUTO) 4.02 MIL/uL (4.0-5.2); WHITE BLOOD COUNT (AUTO) 6.6 K/uL (4.3-11.0)
[2020-03-09 08:33] LABS: CARBON DIOXIDE 24 mmol/L (21-32); CHLORIDE 108 mmol/L (98-107); CREATININE 0.9 mg/dL (0.6-1.3); GLUCOSE 109 mg/dL (74-106); MAGNESIUM 1.3 mg/dL (1.8-2.4); PHOSPHORUS 2.7 mg/dL (2.5-4.9); POTASSIUM 4.1 mmol/L (3.5-5.1); SODIUM SERUM 141 mmol/L (136-145); UREA NITROGEN, BLOOD 16 mg/dL (7-18)
[2020-03-09] MEDS: PANTOPRAZOLE 40 MG VIAL IV SCH ×2 (09:40→21:03)
[2020-03-09] MEDS: Magnesium 1GM/D5W 100ML PREMIX 100 ML IV SCH ×4 (11:28→16:27)
[2020-03-09] MEDS: SOD FERRIC GLUC 125 MG in IV NS 0.9% 100 ML IV SCH (15:41)
[2020-03-09] MEDS: INSULIN REGULAR, HUMAN 100 UNIT/ML 3 ML VIAL SQ PRN ×2 (16:48→21:45)
--- NOTE | 2020-03-09 19:07 | NUR ---
RN NOTES PATIENT IN BED RESTING NO SOB OR ACUTE DISTRESS NOTED. NO ACUTE CHANGES NOTED. NO BLEEDING NOTED. ALL DUE MEDICATIONS ADMINISTERED. ALL NEEDS MET. SAFETY MEASURES IN PLACE WILL CONTINUE TO MONITOR.
--- NOTE | 2020-03-09 20:08 | NUR ---
TELE/RN OPENING NOTE Patient asleep in bed A/O x2, forgetful. Breathing even, unlabored on room air. Tele monitor sinus rhythm No signs of acute distress or SOB. Skin warm pink, dry, appropriate for ethnicity. Skin tears noted on elbows, neck and chest. Abdomen round, soft, non-tender. BS hypoactive. Patient is incontinent. IV site right wrist 20g running NS @ 75 ml/hr, no infiltration. Bed in low position, wheels locked, side rails up x2, call light within reach.
[2020-03-09 20:40] LABS: HEMOGLOBIN 8.7 g/dL (11.5-14.8)
[2020-03-10] VITALS (8 sets, daily range): BP systolic 144–155; BP diastolic 60–74
--- NOTE | 2020-03-10 00:06 | NUR ---
VASCULAR TECHNOLOGIST SONOGRAPHERCELLULOID TRIMMER OF CARE RECEIVE PT A/O X 1 SR 63'S HR ON CARDIAC MONITORING. STABLE CONDITION, ASLEEP AND EASILY AWAKEN. NO S/S OF ACTIVE BLEEDING. SAFETY MEASURES IN PLACE. WILL CONT TO MONITOR.
[2020-03-10] MEDS: IV NS 0.9% 1,000 ML IV PRN ×2 (02:18→14:28)
--- NOTE | 2020-03-10 06:25 | NUR ---
Slept well, on 2lpm via nc 02 sat 96%. kept clean, dry and comfortable, am care rendered, assisted reposition q2hr, pt nsr 61 borderline on cardiac monitoring. per celina consider EGD +colonoscopy. awaiting result covid. no s/s of active bleeding. safety measures at all times. will endorse poc.
[2020-03-10 06:42] LABS: BASOPHILS % (AUTO) 0.6 % (0.0-2.0); EOSINOPHILS % (AUTO) 3.4 % (0.0-6.0); HEMATOCRIT 30 % (33-45); HEMOGLOBIN 9.7 g/dL (11.5-14.8); LYMPHOCYTES % (AUTO) 17.6 % (20.0-44.0); MEAN CORPUSCULAR HGB CONC 33 g/dl (31.0-36.0); MEAN CORPUSCULAR VOLUME 75 fL (82-100); MONOCYTES # (AUTO) 0.5 /CMM (0.1-1.30); MONOCYTES % (AUTO) 7.8 % (2.0-12.0); NEUTROPHILS # (AUTO) 4.2 /CMM (1.8-8.9); NEUTROPHILS % (AUTO) 70.6 % (43.0-81.0); PLATELET COUNT (AUTO) 108 /CMM (150-450); WHITE BLOOD COUNT (AUTO) 5.9 K/uL (4.3-11.0)
[2020-03-10] MEDS: INSULIN REGULAR, HUMAN 100 UNIT/ML 3 ML VIAL SQ PRN ×3 (06:49→16:55)
[2020-03-10] MEDS: BLOOD SUGAR DIAGNOSTIC 1 EACH STRIP VI SCH ×4 (06:49→22:01)
[2020-03-10 07:03] LABS: CREATININE 0.8 mg/dL (0.6-1.3); MAGNESIUM 2.1 mg/dL (1.8-2.4); POTASSIUM 3.9 mmol/L (3.5-5.1)
--- NOTE | 2020-03-10 07:15 | NUR ---
SWIMMING POOL MAINTENANCE NOTES RECEIVED PATIENT IN BED ASLEEP, AROUSABLE TO VERBAL AND TACTILE STIMULI. HOB ELEVATED. NO SOB. ON O2 AT 2L/MIN VIA NC. ON TELE MONITORING, SR: 65. IV ACCESS TO RIGHT WRIST INFUSING NS AT 75 ML/HR DAISHA WELL. BED IN LOWEST POSITION ,LOCKED. BED ALARM ON. CALL LIGHT WITHIN REACH. FREQUENT VISUAL CHECK DONE.
[2020-03-10] MEDS: PANTOPRAZOLE 40 MG VIAL IV SCH ×2 (08:46→22:01)
[2020-03-10] MEDS: SOD FERRIC GLUC 125 MG in IV NS 0.9% 100 ML IV SCH (14:28)
--- NOTE | 2020-03-10 15:27 | NUR ---
EVENT PRODUCER NOTES CALLED LAB AND SPOKE TO CARMELITA, PER CARMELITA COVID TEST STILL PENDING.
[2020-03-10 18:11] LABS: HEMOGLOBIN 9.7 g/dL (11.5-14.8)
--- NOTE | 2020-03-10 19:22 | NUR ---
BINDER TECHNICIAN NOTES PATIENT RESTING COMFORTABLY IN BED. HOB ELEVATED. NO S/S OF RESPIRATORY DISTRESS. TITRATED 02, NOW ON ROOM AIR WITH SPO2 OF 97% DURING THE SHIFT. LEFT HAND # 22 IV ACCESS INFUSING NS AT 75 ML/HR DAISHA WELL. BED IN LOWEST POSITION, LOCKED. BED ALARM ON. CALL LIGHT WITHIN REACH. IN NO APPARENT DISTRESS. ABLE TO VERBALIZE NEEDS. CALL LIGHT WITHIN REACH.
--- NOTE | 2020-03-10 19:23 | NUR ---
RN OPENING NOTES Pt asleep on bed. No s/sx of discomfort noted. On RA, no s/sx of respiratory distress noted at this time. On tele monitor with NSR noted. Kept on bed clean, dry and comfortable. On fall and aspiration precautions. Will continue to monitor accordingly.
[2020-03-10] MEDS: *INSULIN REGULAR(HUMULIN R)HUM 100 UNIT/ML VIAL SQ PRN (22:11)
--- NOTE | 2020-03-11 | NUR ---
RN NOTES Pt refused checked for vital signs despite education provided. On tele monitor with NSR noted.
[2020-03-11 04:00] VITALS: BP 163/71
[2020-03-11 04:32] VITALS: BP 163/71
--- NOTE | 2020-03-11 06:13 | NUR ---
RN CLOSING NOTES Pt asleep on bed. On RA, no respiratory distress noted. A/O x1-2, confused, needs encouragement to cooperate with ADLs. On tele monitor with NSR with PVCs noted. All nursing needs attended, due meds given as ordered. Accu-check, no Insulin coverage per SSI as ordered. Kept on bed clean, dry and comfortable. On fall and aspiration precautions. Endorsed.
--- NOTE | 2020-03-11 07:15 | NUR ---
MANAGER ANALYTICAL NOTES RECEIVED PATIENT IN BED ASLEEP, ARUOSABLE TO VERBAL AND TACTILE STIMULI. HOB ELEVATED. ON ROOM AIR WITH SPO2 OF 98%. NO SOB. ALERT A DN ORIENTED X 1-2. ON TELE MONITORING SR: 77. LEFT HAND # 22 INTACT INFUSING NS @ 75ML/HR DAISHA WELL. BED IN LOWEST POSITION ,LOCKED. BED ALARM ON. DEO LIGHT WITHIN REACH.
[2020-03-11] MEDS: BLOOD SUGAR DIAGNOSTIC 1 EACH STRIP VI SCH ×4 (07:16→21:43)
[2020-03-11 08:00] VITALS: BP 149/75
[2020-03-11 09:51] LABS: BASOPHILS % (AUTO) 0.6 % (0.0-2.0); EOSINOPHILS % (AUTO) 2.9 % (0.0-6.0); HEMATOCRIT 30 % (33-45); HEMOGLOBIN 9.2 g/dL (11.5-14.8); LYMPHOCYTES # (AUTO) 1.1 /CMM (0.8-4.8); LYMPHOCYTES % (AUTO) 15.2 % (20.0-44.0); MEAN CORPUSCULAR HGB CONC 31 g/dl (31.0-36.0); MEAN CORPUSCULAR VOLUME 73 fL (82-100); MONOCYTES # (AUTO) 0.6 /CMM (0.1-1.30); MONOCYTES % (AUTO) 8.3 % (2.0-12.0); NEUTROPHILS # (AUTO) 5.2 /CMM (1.8-8.9); PLATELET COUNT (AUTO) 296 /CMM (150-450); RED BLOOD CELL COUNT(AUTO) 4.07 MIL/uL (4.0-5.2); WHITE BLOOD COUNT (AUTO) 7.1 K/uL (4.3-11.0)
[2020-03-11] MEDS: PANTOPRAZOLE 40 MG VIAL IV SCH ×2 (09:59→21:27)
[2020-03-11 10:04] LABS: CALCIUM, SERUM 9.1 mg/dL (8.5-10.1); CREATININE 0.8 mg/dL (0.6-1.3); POTASSIUM 3.8 mmol/L (3.5-5.1)
[2020-03-11 12:00] VITALS: BP 153/69
--- NOTE | 2020-03-11 12:25 | NUR ---
DESKTOP SUPPORT SPECIALIST NOTES BS 92MG/DL, INSULIN HELD PER LEVEL ORDERED.
[2020-03-11] MEDS: *INSULIN REGULAR(HUMULIN R)HUM 100 UNIT/ML VIAL SQ PRN ×2 (12:35→21:41)
[2020-03-11] MEDS: SOD FERRIC GLUC 125 MG in IV NS 0.9% 100 ML IV SCH (14:27)
[2020-03-11 16:00] VITALS: BP 159/81
[2020-03-11] MEDS: INSULIN REGULAR, HUMAN 100 UNIT/ML 3 ML VIAL SQ PRN (17:37)
--- NOTE | 2020-03-11 18:20 | NUR ---
SEED CONE PICKER NOTES PATIENT RESTING COMFORTABLY IN BED WATCHING TV. HOB ELEVATED. NO S/S OF RESPIRATORY DISTRESS. RIGHT HAND # 22 INTACT AND PATENT INFUSING NS @ 75ML/HR DAISHA WELL. BED IN LOWEST POSITION ,LOCKED. BED ALARM ON. CALL LIGHT WITHIN REACH. IN NO APPARENT DISTRESS. AWAITING FOR COVID RESULT, STILL PENDING.
[2020-03-11] MEDS: IV NS 0.9% 1,000 ML IV PRN (21:27)
[2020-03-11 23:25] VITALS: BP 140/80
[2020-03-12] VITALS (7 sets, daily range): BP systolic 145–158; BP diastolic 65–97
[2020-03-12] MEDS: BLOOD SUGAR DIAGNOSTIC 1 EACH STRIP VI SCH ×4 (06:40→21:15)
--- NOTE | 2020-03-12 07:24 | NUR ---
WEB MARKETING STRATEGIST NOTES PATIENT RESTING COMFORTABLY IN BED, ASLEEP. HOB ELEVATED. REMAIN ON ROOM AIR WITH SPO2 OF 98%. NO S/S OF RESPIRATORY DISTRESS. RIGHT HAND # 22 INTACT AND PATENT INFUSING NS @ 75ML/HR DAISHA WELL. BED IN LOWEST POSITION, LOCKED. BED ALARM ON. CALL LIGHT WITHIN REACH. IN NO APPARENT DISTRESS.
--- NOTE | 2020-03-12 07:30 | NUR ---
Patient is stable , on room air tolerating well. IV line intact and patent. Pt alert oriented x2. Safetuy mesures observed. Will continue to monitor
[2020-03-12 08:19] LABS: BASOPHILS % (AUTO) 0.5 % (0.0-2.0); EOSINOPHILS % (AUTO) 4.2 % (0.0-6.0); HEMATOCRIT 30 % (33-45); HEMOGLOBIN 9.4 g/dL (11.5-14.8); LYMPHOCYTES # (AUTO) 1.2 /CMM (0.8-4.8); LYMPHOCYTES % (AUTO) 16.6 % (20.0-44.0); MEAN CORPUSCULAR HGB CONC 32 g/dl (31.0-36.0); MEAN CORPUSCULAR VOLUME 73 fL (82-100); MONOCYTES # (AUTO) 0.9 /CMM (0.1-1.30); MONOCYTES % (AUTO) 12.7 % (2.0-12.0); NEUTROPHILS # (AUTO) 4.9 /CMM (1.8-8.9); PLATELET COUNT (AUTO) 291 /CMM (150-450); RED BLOOD CELL COUNT(AUTO) 4.06 MIL/uL (4.0-5.2); WHITE BLOOD COUNT (AUTO) 7.4 K/uL (4.3-11.0)
[2020-03-12 08:30] LABS: CALCIUM, SERUM 8.8 mg/dL (8.5-10.1); CREATININE 0.8 mg/dL (0.6-1.3); POTASSIUM 3.6 mmol/L (3.5-5.1)
[2020-03-12] MEDS: PANTOPRAZOLE 40 MG VIAL IV SCH ×2 (08:51→21:15)
[2020-03-12] MEDS ORDERED: PEG 3350/NA SULF,BICARB,CL/KCL 4,000 ML BOTTLE PO ONE (13:00)
--- NOTE | 2020-03-12 14:14 | NUR ---
Patient started on golately for possible colonoscopy tomorrow.
[2020-03-12] MEDS: SOD FERRIC GLUC 125 MG in IV NS 0.9% 100 ML IV SCH (14:19)
--- NOTE | 2020-03-12 16:10 | NUR ---
Patient was able to take 4 cups odd Golately . Tolerated well
--- NOTE | 2020-03-12 17:40 | NUR ---
Consent for EGD/Colonoscopy obtained from pt's daughter Michelle via phone
--- NOTE | 2020-03-12 18:05 | NUR ---
Bedside report given top Abeba GALLEGOS
--- NOTE | 2020-03-12 18:13 | NUR ---
MS RN NOTES RECEIVED TRANSFER. PATIENT MEDICALLY STABLE; BREATHING ON ROOM AIR; NO SOB NOTED AT THIS TIME. VITAL SIGNS WITHIN NORMAL LIMITS. WILL CONTINUE TO MONITOR PATIENT.
--- NOTE | 2020-03-12 18:53 | NUR ---
MS RN NOTES PATIENT IN BED, RESTING COMFORTABLY. NO CHANGES IN CONDITION. WILL ENDORSE TO ACCOUNTANT NURSE FOR CONTINUITY OF CARE.
--- NOTE | 2020-03-12 19:45 | NUR ---
MACHINE DESIGN TEACHER OPENING NOTES PATIENT RECEIVED RESTING IN BED COMFORTABLY; A/OX1-2, PORTUGUESE SPEAKING; BREATHING EVEN AND UNLABORED; NO SOB NOTED; TOLERATING ROOM AIR WELL; TELE MONITOR ATTACHED, READS SINUS RHYTHM 83BPM WITH BBBS; PATIENT HAS GOLYTELY ORDERED SINCE 2PM PER AM SHIFT, PATIENT BOTTLE STILL 3/4TH FULL, CHARGE NURSE AWARE; MD MADE AWARE; PER DR. DAWN, DR. HANKS IS PATTERN ATTENDANT, ATTEMPTED TO CONTACT DEMARIO, NO ANSWER; WILL CONVINCE PATIENT TO DRINK MUCH POSSIBLE IN ORDER FOR HER STOMACH TO CLEAR FOR PROCEDURES TOMORROW; R HAND # 22 INTACT AND PATENT; FLUSHING WELL; SAFETY PRECAUTIONS IMPLEMENTED; BED LOCKED IN LOW POSITION; SIDE RAILSX2; CALL LIGHT WITHIN REACH; WILL CONT TO MONITOR
[2020-03-12] MEDS: *INSULIN REGULAR(HUMULIN R)HUM 100 UNIT/ML VIAL SQ PRN (21:16)
--- NOTE | 2020-03-12 21:21 | NUR ---
TIMBER HAND NOTES PATIENT IV SITE, R HAND #22 INFILTRATED, PER PATIENT, IT HURTS WHEN IT IS FLUSHED; PATIENT SCREAMING AND DOES NOT WANT TO LET ANYONE TOUCH HER HANDS/ARMS; PATIENT REFUSING IV RE-INSERTION; PATIENT EDUCATED ON RISKS AND BENEFITS; PATIENT STILL REFUSING; CHARGE NURSE AWARE
--- NOTE | 2020-03-12 23:39 | NUR ---
CORPORATE REAL ESTATE SPECIALIST NOTES PATIENT REFUSING TO CONTINUE DRINKING GOLYTELY; PATIENT WAS ONLY ABLE TO DRINK HALF OF BOTTLE; CHARGE NURSE AWARE; DR. DAWN AWARE, ATTEMPTED TO CONTACT DR. HANKS, UNABLE TO REACH;
[2020-03-13] VITALS: BP 145/76
[2020-03-13 00:39] VITALS: BP 149/65
--- NOTE | 2020-03-13 02:43 | NUR ---
PURCHASING ASSOCIATE NOTES PATIENT REFUSING TO WEAR TELE MONITOR; SCREAMED AT [facility] TO GET OUT OF THE ROOM; PATIENT INFORMED/EDUCATED ON RISKS AND BENEFITS; PATIENT STILL REFUSING; PATIENT NON-COMPLIANT; CHARGE NURSE AWARE; AWARE; WILL CONT TO MONITOR Addendum: 03/13/20 at 0249 by VINNIE MELENDEZ RN LIEN TRIVEDI NP; PSYCH CONSULT IN AM, WILL INFORM DAY SHIFT; CHARGE NURSE AWARE
--- NOTE | 2020-03-13 04:13 | NUR ---
DAIRY MANAGER NOTES PATIENT REFUSING 0400 VITAL SIGNS; AWARE
[2020-03-13] MEDS: BLOOD SUGAR DIAGNOSTIC 1 EACH STRIP VI SCH ×4 (06:31→21:18)
--- NOTE | 2020-03-13 06:35 | NUR ---
SOLDERER FURNACE CLOSING NOTES PATIENT RESTING IN BED COMFORTABLY; A/OX1-2, CONFUSED, FAROESE SPEAKING; BREATHING EVEN AND UNLABORED; NO SOB NOTED; TOLERATING ROOM AIR WELL; TELE MONITOR READS SINUS RHYTHM WITH BBB 70 - 85BPM UNTIL TIME PATIENT REFUSED TO WEAR TELEBOX, AWARE, CHARGE NURSE AWARE; PATIENT KEPT NPO; PATIENT REFUSING IV ACCESS AT THIS TIME; PATIENT ALSO REFUSED TO FINISH GOLYTELY; PATIENT REFUSING VITALS 0400 AND ACCU CHECK IN AM; WILL INFORM DAY SHIFT; DR. DAWN AND SHIKHA, WINDOW DISPLAY DESIGNER MADE AWARE OF PATIENT NON-COMPLIANCE; CHARGE NURSE AWARE WELL; [employer] LAW CLERK MADE AWARE PATIENT MAY REFUSE LAB DRAW; ALL NEEDS RENDERED; SAFETY PRECAUTIONS IMPLEMENTED; BED LOCKED IN LOW POSITION; SIDE RAILSX2; CALL LIGHT WITHIN REACH; WILL ENDORSE LEO TO ONCOMING SHIFT
--- NOTE | 2020-03-13 07:30 | NUR ---
MAINTENANCE MAN OPENING SHIFT NOTES RECEIVED PATIENT AWAKE RESTING IN BED, A/O X1-2, PUERTO RICAN SPEAKER, BREATHING EVEN AND UNLABORED, ON RA, NO SOB NOTED, NO ACUTE RESPIRATORY DISTRESS NOTED. PER [employer]ACLE BPM DEVELOPER PATIENT REFUSED TO BE PLACED ON TELE MONITOR OVER NIGHT WELL REFUSED TO TAKE GOLYTELY FOR PENDING EGD PROCEDURE SCHEDULED TODAY. PATIENT WITH IV TO RT HAND C/O PAIN. NO REDNESS OR SWELLING NOTED. PT REFUSED TO HAVE IT FLUSHED. NEW IV LINE STARTED TO LT FOREARM AREA #18G PATENT AND INTACT. BED AT LOWEST POSITION AND LOCKED WITH CALL LIGHT WITHIN REACH. AND SIDERAILS UP X2. ALL SAFETY PRECAUTIONS IMPLEMENTED, WILL CONTINUE TO MONITOR.
[2020-03-13 08:00] VITALS: BP 140/86
[2020-03-13 10:46] LABS: BASOPHILS % (AUTO) 0.7 % (0.0-2.0); EOSINOPHILS % (AUTO) 2.9 % (0.0-6.0); HEMATOCRIT 29 % (33-45); HEMOGLOBIN 9.3 g/dL (11.5-14.8); LYMPHOCYTES # (AUTO) 1.3 /CMM (0.8-4.8); LYMPHOCYTES % (AUTO) 18.5 % (20.0-44.0); MEAN CORPUSCULAR HGB CONC 32 g/dl (31.0-36.0); MEAN CORPUSCULAR VOLUME 73 fL (82-100); MONOCYTES # (AUTO) 0.8 /CMM (0.1-1.30); MONOCYTES % (AUTO) 11.5 % (2.0-12.0); NEUTROPHILS # (AUTO) 4.6 /CMM (1.8-8.9); NEUTROPHILS % (AUTO) 66.4 % (43.0-81.0); PLATELET COUNT (AUTO) 288 /CMM (150-450); RED BLOOD CELL COUNT(AUTO) 4.02 MIL/uL (4.0-5.2); WHITE BLOOD COUNT (AUTO) 6.9 K/uL (4.3-11.0)
--- NOTE | 2020-03-13 11:00 | NUR ---
RN NOTES RECEIVED PATIENT FROM ROSY ZACARIAS, A/O X2. NO SIGNS OF DISTRESS NOTED AT THIS TIME. IV ACCESS ON LFA #22, PATENT AND INTACT. PATIENT REFUSED TELE MONITORING MD SHEELA AWARE. EXPLAINED RISKS AND BENEFITS AND STILL REFUSED. SAFETY MEASURES IN PLACE, BED IN LOWEST LOCKED POSITION WITH SIDE RAILS UP X2. CALL LIGHT WITHIN REACH. WILL CONTINUE TO MONITOR.
--- NOTE | 2020-03-13 11:00 | NUR ---
CONVENTION WORKER NOTES REPORT GIVEN TO MURPHY GALLEGOS FOR CONTINUITY OF CARE.
[2020-03-13] MEDS: PANTOPRAZOLE 40 MG VIAL IV SCH ×2 (11:21→21:17)
[2020-03-13 11:41] LABS: ALBUMIN 3.1 g/dL (3.4-5.0); BILIRUBIN,TOTAL 0.4 mg/dL (0.2-1.0); CREATININE 0.8 mg/dL (0.6-1.3); POTASSIUM 3.5 mmol/L (3.5-5.1); TOTAL PROTEIN, SERUM 6.5 g/dL (6.4-8.2)
--- NOTE | 2020-03-13 11:53 | NUR ---
RN NOTES PATIENT KEPT REFUSING TO TAKE GOLYTLY, EXPLAINED RISKS AND BENEFITS FOR 3X BUT PATIENT STILL REFUSED, PATIENT AWARE THAT SHE IS GOING TO HAVE A PROCEDURE, MD MADE AWARE, WILL CONTINUE TO MONITOR.
[2020-03-13] MEDS ORDERED: ANESTHESIA TRAY IN PYXIS 1 EA TRAY MC ONE (14:00)
[2020-03-13] MEDS: SOD FERRIC GLUC 125 MG in IV NS 0.9% 100 ML IV SCH (14:23)
[2020-03-13 16:00] VITALS: BP_SYST 102; BP_SYST 160; BP_DIAS 71; BP_DIAS 98
--- NOTE | 2020-03-13 18:49 | NUR ---
RN NOTES PATIENT IN BED RESTING COMFORTABLY IN MODERATE HIGH BACK REST, A/O X2. NO SIGNS OF DISTRESS NOTED THROUGHOUT THE SHIFT. IV ACCESS ON LFA #22, PATENT AND INTACT. SCHEDULED FOR EGD AND COLONOSCOPY @19:30, CONSENT SIGNED. SAFETY MEASURES IN PLACE, BED IN LOWEST LOCKED POSITION WITH SIDE RAILS UP X2. CALL LIGHT WITHIN REACH. WILL ENDORSE TO PRODUCT DESIGN SPECIALIST NURSE FOR LEO.
--- NOTE | 2020-03-13 19:30 | NUR ---
MS/RN OPENING NOTES PATIENT WAS BROUGHT TO OPERATING ROOM WHEELED IN BEDBY OR NURSES, DR HANKS IS THE SURGEON WHO CONFIRMED NPO STATUS SINCE 3 PM WITH AM RN , PATIENT ALERT X2, VITAL SIGNS CHECK BP AT 158/88, PULSE 80, ON ROOM AIR SATURATION AT 100%. RESPIRATION AT 20. FOR PROCEDURE EGD AND COLONOSCOPY. PATIENT SKIN WARM TO TOUCH, NO PAIN OBSERVED AND REPORTED. CONSENT WAS SIGNED BY DAUGHTER BETSY.
--- NOTE | 2020-03-13 20:42 | NUR ---
MS/RN NOTES RECEIVED FROM PACU SAÚL RN PER DR HANKS TO RESU,E PATIENT DIET TO REGULAR. PATIENT WILL BE BROUGHT BACK FROM PACU TONIGHT. ORDERED CARRIED OUT.
--- NOTE | 2020-03-13 20:57 | NUR ---
MS/RN NOTES PATIENT CAME BACK FROM PACU WHEELED BY TENNIS PROFESSIONAL SCOT AND ATTENDANT, ALERT X2, IN OXYGEN AT 2 LITER WITH OXYGENATION AT 99%, PULSE 85, R- 20, TEMPERATURE AT 98 WITH ELEVATED BLOOD PRESSURE SBP OVER 170 AND TO FOLLOW UP AND RE CHECK.
[2020-03-13 21:30] VITALS: BP 154/78
--- NOTE | 2020-03-13 21:30 | NUR ---
MS/RN NOTES PATIENT ABLE TO EAT SNACKS AND JUICE, VITAL SIGNS TAKEN ON OXYGEN VIA NC AT 2 LITER WITH 100% OXYGENATION LEVEL, PULSE 75, RESPIRATION 19, TEMPERATURE 97.7, B/P 154/78.DENIES PAIN.
--- NOTE | 2020-03-13 23:08 | NUR ---
MS/RN NOTES PATIENT SLEEP RESTING COMFORTABLY IN BED.
[2020-03-14] MEDS: BLOOD SUGAR DIAGNOSTIC 1 EACH STRIP VI SCH ×2 (06:08→11:30)
[2020-03-14] MEDS: INSULIN REGULAR, HUMAN 100 UNIT/ML 3 ML VIAL SQ PRN ×2 (06:12→11:29)
--- NOTE | 2020-03-14 06:12 | NUR ---
BLOOD SUGAR CHECK AT 148.
--- NOTE | 2020-03-14 06:44 | NUR ---
MS/RN NOTES PATIENT ALERT X2, FORGETFUL REQUIRE FREQUENT REORIENTATION AND REMINDER, ABLE TO ACKNOWLEDGE NURSE AND COMPLIANT WITH CARE, KEPT COMFORTABLE, RESPIRATIONS EVEN AND UNLABORED, DENIES ANY PAIN, OFFERED AND PROVIDED FOOD AND FLUIDS TOLERATED WELL, IV SITE ON LEFT FOREARM PATENT, REPOSITIONED FOR COMFORT, BED LOCKED, CALL LIGHTS WITHIN REACH. WILL ENDORSE TO AM RN FOR LEO.
[2020-03-14 08:00] VITALS: BP 162/73
[2020-03-14] MEDS: PANTOPRAZOLE 40 MG VIAL IV SCH (08:48)
[2020-03-14] MEDS ORDERED: PANT40TA2 PO (14:24)
--- NOTE | 2020-03-14 16:06 | NUR ---
rn notes patient discharged at this time, all belongings with her, refusing photos, was pushing my hands away and yelling no. Patient going back to [facility]. nothing missing, all paperworks with EMT's.
[2020-03-14] MEDS ORDERED: MUPIROCIN OINT 2% 22 GM TUBE NS SCH (21:00)
== END 2020-03-14 16:15 | DRG 391 ==
LOC: ER 14:23 → TELE2 16:47 → MED 03-12 18:08 → TELE 03-12 19:42 → MED 03-13 11:35
PROVIDERS: ADMIT Internal Medicine; ATTEND Nurse Practitioner Acute Care
PROC: 0DB98ZX Excision of Duodenum, Via Natural or Artificial Opening Endoscopic, Diagnostic (ICD-10-PCS; principal; 2020-03-08)
PROC: 30233N1 Transfusion of Nonautologous Red Blood Cells into Peripheral Vein, Percutaneous Approach (ICD-10-PCS; 2020-03-08)
PROC: 0DJD8ZZ Inspection of Lower Intestinal Tract, Via Natural or Artificial Opening Endoscopic (ICD-10-PCS; 2020-03-13)
DX: K29.70 Gastritis, unspecified, without bleeding (principal); N17.0 Acute kidney failure with tubular necrosis; F03.90 Unspecified dementia, unspecified severity, without behavioral disturbance, psychotic disturbance, mood disturbance, and anxiety; E78.5 Hyperlipidemia, unspecified; E11.9 Type 2 diabetes mellitus without complications; F41.9 Anxiety disorder, unspecified; K64.8 Other hemorrhoids; K57.30 Diverticulosis of large intestine without perforation or abscess without bleeding; Z79.84 Long term (current) use of oral hypoglycemic drugs; Z79.82 Long term (current) use of aspirin; Z79.899 Other long term (current) drug therapy; D50.9 Iron deficiency anemia, unspecified; E83.42 Hypomagnesemia; E87.5 Hyperkalemia; F32.9 Major depressive disorder, single episode, unspecified; F01.50 Vascular dementia, unspecified severity, without behavioral disturbance, psychotic disturbance, mood disturbance, and anxiety
CPT/HCPCS: 36415; 71045-TC; 80048-TC; 80053-TC; 80076-TC; 82962-TC; 83540-TC; 83735-TC; 84100-TC; 84484-TC; 85025-TC; 85027-TC; 85610-TC; 85730-TC; 86850-TC; 87081-TC; 88305-TC; C9113; G0378; J1815; J2704; J2916; J3475; J3490; J7030; J7050; P9016-BL; U0003-CS

== ENCOUNTER 2020-10-02 13:14 | Inpatient (IN) | payer MEDICAID, MEDICARE ==
[~2020-10-02] VITALS: Ht 152.4 cm; Wt 65.8 kg
[~2020-10-02 13:14] MED LIST changes: -GLIP10TA11 PO; -HYDR-4384 PO; +MEGE800O PO; +ONDA-97 SL; +PANT40TA2 PO; -SERT50TA PO
[2020-10-02] MEDS ORDERED: IV NS 0.9% 500 ML BAG IV ONE (13:30)
[2020-10-02] MEDS ORDERED: LOPE2TAB23 PO (13:50)
[2020-10-02] MEDS ORDERED: IBUP-1953 PO (13:50)
[2020-10-02] MEDS ORDERED: PANT40TA49 PO (13:50)
[2020-10-02] MEDS ORDERED: GLIM1TAB18 PO (13:50)
[2020-10-02] MEDS ORDERED: SERT-438 PO (13:50)
--- NOTE | 2020-10-02 14:03 | NUR ---
SHIRAZ FROM [facility] TO ER BED 6. AAXO3. NOT IN RESP DISTRESS. BROUGHT IN FOR ABNORMAL LAB RESULT. HGB @ 4.4. PT IS NOTED PALE AND WEAK UPON ASSESSMENT,. WAS AT THE BEDSIDE FOR EVAL. ORDERS RECEIVED, NOTED AND CARRIED OUT. IV LINE ESTABLISHED ON L WRIST 20G, BLOOD DRAWN AND GIVEN TO PHLEBAT BEDSIDE. PT ON O2 VIA NC @ 4LPM.
[2020-10-02 14:11] LABS: BASOPHILS # (AUTO) 0.1 /CMM (0.0-0.2); BASOPHILS % (AUTO) 0.8 % (0.0-2.0); LYMPHOCYTES # (AUTO) 1.2 /CMM (0.8-4.8); LYMPHOCYTES % (AUTO) 16.9 % (20.0-44.0); MEAN CORPUSCULAR HGB CONC 29 g/dl (31.0-36.0); MEAN CORPUSCULAR VOLUME 80 fL (82-100); MONOCYTES # (AUTO) 0.9 /CMM (0.1-1.30); MONOCYTES % (AUTO) 12.1 % (2.0-12.0); NEUTROPHILS % (AUTO) 68.2 % (43.0-81.0); PLATELET COUNT (AUTO) 424 /CMM (150-450); RED BLOOD CELL COUNT(AUTO) 2.09 MIL/uL (4.0-5.2); WHITE BLOOD COUNT (AUTO) 7.4 K/uL (4.3-11.0)
[2020-10-02 14:14] LABS: HEMATOCRIT 17 % (33-45); HEMOGLOBIN 4.9 g/dL (11.5-14.8)
[2020-10-02 14:16] LABS: CALCIUM, SERUM 9.3 mg/dL (8.5-10.1); CARBON DIOXIDE 19 mmol/L (21-32); CHLORIDE 106 mmol/L (98-107); CREATININE 1.6 mg/dL (0.6-1.3); GLUCOSE 156 mg/dL (74-106); POTASSIUM 5.1 mmol/L (3.5-5.1); SODIUM SERUM 140 mmol/L (136-145); UREA NITROGEN, BLOOD 32 mg/dL (7-18)
--- NOTE | 2020-10-02 14:21 | NUR ---
marianela paged. awaiting odnavon worley call back.
[2020-10-02 14:31] LABS: ALANINE AMINOTRANSFERASE 26 U/L (12-78); ALBUMIN 3.6 g/dL (3.4-5.0); ALKALINE PHOSPHATASE 44 U/L (46-116); ASPARTATE AMINOTRANSFERASE 26 U/L (15-37); BILIRUBIN,DIRECT 0.1 mg/dL (0.0-0.2); BILIRUBIN,TOTAL 0.3 mg/dL (0.2-1.0); TOTAL PROTEIN, SERUM 7.4 g/dL (6.4-8.2)
--- NOTE | 2020-10-02 15:13 | NUR ---
RM 104
[2020-10-02 15:23] LABS: OCCULT BLOOD STOOL NEGATIVE (NEGATIVE)
--- NOTE | 2020-10-02 15:33 | NUR ---
REPORT GIVEN TO ROSY CARTER FOR LEO
[2020-10-02 15:36] LABS: NEUTROPHILS % (MANUAL) 72 (42-76)
--- NOTE | 2020-10-02 15:36 | NUR ---
VSS. NO NOTED REACTION.
[2020-10-02 15:37] LABS: EOSINOPHILS % (MANUAL) 2 % (0-4); LYMPHOCYTES % (MANUAL) 18 % (16-48); METAMYELOCYTES % 1 % (0-0); MONOCYTES % (MANUAL) 7 % (0-11.0)
[2020-10-02 15:40] VITALS: BP 161/68
--- NOTE | 2020-10-02 15:50 | NUR ---
PT TRANSPORTED TO UNIT ON GURNEY WITH EMT AND RN AT BEDSIDE W/ ACLS PROTOCOL. NAD NOTED DURING TRANSPORT
--- NOTE | 2020-10-02 15:50 | NUR ---
RN NOTES RECEIVED PT ON FROM ER IN ROOM 104, PT IS ALERT/ CONFUSED AT TIMES, ON 2L O2 N/C FOR COMFORT, O2 SAT WNL, ON TELE SR HR IN 80'S , NO SKIN BREAKDOWN NOTED, L WRIST IV SITE CLEAN, DRY AND INTACT, PT RECEIVING ON UNIT OF PRBC AT THIS TIME, VSS STABLE, SR UP x3, CALL LIGHT WITHIN EASY REACH ,BED LOCKED AND IN LOWEST POSITION, CONTINUE TO MONITOR.
--- NOTE | 2020-10-02 16:00 | NUR ---
RN NOTES DR LAW NOTIFED REGARDING ADMISSION ORDER .
[2020-10-02 16:10] VITALS: BP 152/74
[2020-10-02 16:30] VITALS: BP 155/65
--- NOTE | 2020-10-02 16:30 | NUR ---
RN NOTES ONE UNIT OF PRBC INFUSED, PT TOLERATED WELL, VSS STABLE
--- NOTE | 2020-10-02 17:00 | NUR ---
RN NOTES NO ADMISSION ORDER YET , DR LAW NOTIFED.
--- NOTE | 2020-10-02 18:03 | NUR ---
RN NOTES VSS STABLE , PT DENIES ANY DISTRESS , WILL ENDORSE TO TARGET DEVELOPER NURSE FOR CONTINUITY OF CARE .
[2020-10-02] MEDS ORDERED: ONDANSETRON HCL/PF 4 MG/2 ML VIAL IVP PRN (18:30)
[2020-10-02] MEDS ORDERED: MORPHINE SULFATE INJ 2 MG/ML DISP.SYRIN IV PRN (18:30)
[2020-10-02] MEDS ORDERED: ACETAMINOPHEN 325 MG TABLET PO PRN (18:30)
[2020-10-02] MEDS ORDERED: Z GUARD REMEDY 2 OZ OINT TP PRN (18:30)
[2020-10-02] MEDS ORDERED: ZOLPIDEM TARTRATE 5 MG TABLET PO PRN (18:30)
[2020-10-02] MEDS: IV NS 0.9% 1,000 ML IV PRN (18:34)
[2020-10-02 20:51] LABS: THYROID STIMULATING HORMONE 2.64 uIU/mL (0.358-3.74)
[2020-10-02 21:00] VITALS: BP 155/51
--- NOTE | 2020-10-02 21:14 | NUR ---
RN NOTE PATIENT RESTING IN BED, A/OX2-3. ON O2 3L NASAL CANNULA, O2 SAT 100%. NO SOB OR ANY RESPIRATORY DISTRESS. DENIES ANY PAIN OR DISCOMFORT AT THIS TIME. IV ACCESS ON LEFT WRIST #20 WITH IVF NS @ 75ML/HR RUNNING, NO S/S OF INFILTRATION. SAFETY MEASURES IN PLACE. BED LOCKED AND IN LOWEST POSITION. CALL LIGHT WITHIN REACH. WILL CONTINUE TO MONITOR.
[2020-10-02] MEDS: ATORVASTATIN 40 MG TABLET PO SCH (21:32)
[2020-10-02] MEDS: MIRTAZAPINE 15 MG TABLET PO SCH (21:32)
[2020-10-03] VITALS (15 sets, daily range): BP systolic 133–158; BP diastolic 57–91
--- NOTE | 2020-10-03 05:06 | NUR ---
NOTIFIED SHIKHA [facility] HGB 4.9 YESTERDAY AND RECEIVED 1 UNIT PRBC WITH NEW ORDERS TO GIVE 1 UNIT PRBC NOTED AND CARRIED OUT.
[2020-10-03 06:11] LABS: ALANINE AMINOTRANSFERASE 24 U/L (12-78); ALBUMIN 3.2 g/dL (3.4-5.0); ALKALINE PHOSPHATASE 39 U/L (46-116); ASPARTATE AMINOTRANSFERASE 17 U/L (15-37); BILIRUBIN,TOTAL 0.3 mg/dL (0.2-1.0); CALCIUM, SERUM 8.6 mg/dL (8.5-10.1); CARBON DIOXIDE 23 mmol/L (21-32); CHLORIDE 109 mmol/L (98-107); CREATININE 1.4 mg/dL (0.6-1.3); GLUCOSE 129 mg/dL (74-106); POTASSIUM 4.6 mmol/L (3.5-5.1); SODIUM SERUM 141 mmol/L (136-145); TOTAL PROTEIN, SERUM 6.6 g/dL (6.4-8.2); UREA NITROGEN, BLOOD 34 mg/dL (7-18)
[2020-10-03 06:13] LABS: BASOPHILS # (AUTO) 0.1 /CMM (0.0-0.2); BASOPHILS % (AUTO) 0.8 % (0.0-2.0); EOSINOPHILS % (AUTO) 1.7 % (0.0-6.0); LYMPHOCYTES # (AUTO) 1.3 /CMM (0.8-4.8); MEAN CORPUSCULAR HGB CONC 31 g/dl (31.0-36.0); MEAN CORPUSCULAR VOLUME 81 fL (82-100); MONOCYTES # (AUTO) 0.7 /CMM (0.1-1.30); MONOCYTES % (AUTO) 11.9 % (2.0-12.0); NEUTROPHILS # (AUTO) 4.1 /CMM (1.8-8.9); NEUTROPHILS % (AUTO) 65.6 % (43.0-81.0); PLATELET COUNT (AUTO) 336 /CMM (150-450); RED BLOOD CELL COUNT(AUTO) 2.46 MIL/uL (4.0-5.2); WHITE BLOOD COUNT (AUTO) 6.3 K/uL (4.3-11.0)
[2020-10-03 06:17] LABS: MAGNESIUM 1.1 mg/dL (1.8-2.4)
[2020-10-03] MEDS: Magnesium 1GM/D5W 100ML PREMIX 100 ML IV SCH ×4 (06:30→10:06)
[2020-10-03] MEDS: IV NS 0.9% 1,000 ML IV PRN (06:37)
--- NOTE | 2020-10-03 06:46 | NUR ---
RECEIVED CALL FROM LAB WITH CRITICAL LAB MAGNESIUM 1.1. NOTIFIED SHIKHA PAREDES WITH NEW ORDERS NOTED AND CARRIED OUT.
[2020-10-03 06:58] LABS: HEMATOCRIT 20 % (33-45); HEMOGLOBIN 6.2 g/dL (11.5-14.8)
[2020-10-03 07:09] LABS: CHOLESTEROL 96 mg/dL (<200); HDL CHOLESTEROL 40 mg/dL (40-60); LDL 46 mg/dL (0-99); TRIGLYCERIDES 61 mg/dL (30-150)
--- NOTE | 2020-10-03 07:30 | NUR ---
RN OPENING NOTE PATENT PRESENT IN ROOM , AWAKE, A/OX2, ON 2L OF O2 VIA NC, TOLERATING WELL, SPO2 97%, MED SURG STATUS, BED RESTED, SKIN INTACT, IV LINES PRESENT ON L WRIST AND R HAND, BOTH INTACT AND PATENT, SAFETY MEASURES IN PLACE, CALL LIGHT IN REACH, HOB ELEVATED, BED ALARM ON, WILL CONT TO MONITOR
--- NOTE | 2020-10-03 07:37 | NUR ---
RN NOTE PATIENT RESTING IN BED, A/OX2-3. ON O2 2L NASAL CANNULA, O2 SAT 100%. NO SOB OR ANY RESPIRATORY DISTRESS. DENIES ANY PAIN OR DISCOMFORT AT THIS TIME. IV ACCESS ON LEFT WRIST #20 AND RIGHT HAND #22 WITH IVF NS @ 75ML/HR RUNNING, NO S/S OF INFILTRATION. WITH CRITICAL LAB HG 6.2 AND HCT 20, NOTIFIED SHIKHA PAREDES WITH NEW ORDERS NOTED AND CARRIED OUT. SAFETY MEASURES IN PLACE. BED LOCKED AND IN LOWEST POSITION. CALL LIGHT WITHIN REACH. WILL ENDORSE TO AM SHIFT.
[2020-10-03] MEDS: GLIMEPIRIDE 1 MG TABLET PO SCH (08:05)
[2020-10-03] MEDS: METOPROLOL TARTRATE 25 MG TABLET PO SCH ×2 (08:05→16:51)
[2020-10-03] MEDS: busPIRone 5 MG TABLET PO SCH (08:05)
[2020-10-03] MEDS: PANTOPRAZOLE 40 MG TABLET.DR PO SCH (08:05)
[2020-10-03] MEDS ORDERED: METFORMIN 500 MG TABLET PO SCH (09:00)
[2020-10-03] MEDS ORDERED: diphenhydrAMINE HCL 50 MG/ML VIAL IV ONE (10:00)
[2020-10-03] MEDS ORDERED: ACETAMINOPHEN 325 MG TABLET PO ONE (10:00)
--- NOTE | 2020-10-03 10:56 | NUR ---
MIDLINE L UPPER ARM G 18 SET UP
--- NOTE | 2020-10-03 11:50 | NUR ---
Initiated blood transfusion @ 1145, patient is awake, VS stable, will cont to monitor
[2020-10-03 11:58] LABS: EOSINOPHILS % (MANUAL) 1 % (0-4); LYMPHOCYTES % (MANUAL) 23 % (16-48); MONOCYTES % (MANUAL) 7 % (0-11.0); NEUTROPHILS % (MANUAL) 69 (42-76)
[2020-10-03] MEDS ORDERED: FUROSEMIDE 40 MG/4 ML VIAL IV ONE (12:00)
--- NOTE | 2020-10-03 14:52 | NUR ---
Transfused 1 unit PRBC tolerated well, will machine pecan picker second unit for transfusion
--- NOTE | 2020-10-03 16:13 | NUR ---
RECEIVING SECOND UNIT OF PRBC, TOLERATING WELL, CONT TO MONITOR
[2020-10-03 17:24] LABS: CREATININE, URINE < 13.0 MG/DL (30.0-125.0); URINE SODIUM, RANDOM 128 mmol/l (40-220)
[2020-10-03 17:29] LABS: COLOR,URINE YELLOW (YELLOW); PH,URINE 5.5 (5.0-8.0)
[2020-10-03 17:30] LABS: BILIRUBIN,URINE NEGATIVE (NEGATIVE); NITRITE, URINE NEGATIVE (NEGATIVE); PROTEIN,URINE NEGATIVE (NEGATIVE); UGLUCOSE NEGATIVE (NEGATIVE); UROBILINOGEN,URINE 0.2 EU/dL (0.2)
[2020-10-03 17:31] LABS: EOSINOPHIL,URINE None Seen; LEUKOCYTE ESTERASE ,URINE NEGATIVE (NEGATIVE)
--- NOTE | 2020-10-03 19:30 | NUR ---
RN OPENING NOTES: RECEIVED PT A/OX2 IN BED SLEEPING COMFORTABLY. PATIENT IN NO S/SX OF ACUTE DISTRESS AT THIS TIME. NO SOB NOTED. PATIENT'S BREATHING IS EVEN AND UNLABORED. PATIENT IS ON 2L OF OXYGEN VIA NC; TOLERATING WELL. PATIENT ON FULL LIQUID DIET; TOLERATES WELL. NOTED IV SITE ON (R HAND AND L UA MIDLINE #18; BOTH PATENT, INTACT AND FLUSHING WELL; NO S/S OF INFECTION OR INFILTRATION. WITH IV FLUID RUNNING ORDERED. SAFETY MEASURES HAVE BEEN PROVIDED AND IMPLEMENTED. PATIENT BED ALARM IS ON. HEAD OF BED ELEVATED. BED IS LOCKED, IN LOWEST POSITION AND SIDE RAILS UP. CALL LIGHT WITHIN REACH OF THE PATIENT. APPLICABLE ISOLATION PRECAUTIONS IN PLACE. WILL CONTINUE TO MONITOR AND REASSESS FOR ANY CHANGES AND WILL CARRY OUT ANY ONGOING AND ACTIVE MD ORDER.
[2020-10-03] MEDS: ATORVASTATIN 40 MG TABLET PO SCH (21:16)
[2020-10-03] MEDS: MIRTAZAPINE 15 MG TABLET PO SCH (21:16)
--- NOTE | 2020-10-03 23:00 | NUR ---
RN NOTES NO CHANGE IN PATIENT CONDITION AT THIS TIME PATIENT VITALS STABLE, NO SIGNS OF ACUTE RESPIRATORY DISTRESS. DRAGLINE OPERATOR HELPER MADE AWARE. WILL CONTINUE TO MONITOR AND REASSESS FOR ANY CHANGES THROUGHOUT THE SHIFT.
--- NOTE | 2020-10-04 02:40 | NUR ---
0240 PATIENT WITH C/O DIFFICULTY BREATHING. REPOSITIONED ON HIGH FRANCIS'S POSITION FOR MAX OXYGENATION AND PLACED ON FACE MASK. O2 SATURATION NOTED IN THE HIGH 80S, PLACED PATIENT ON NON REBREATHER MASK THIS TIME WITH HELP. O2 SATURATION IMPROVED TO 100%. PATIENT VERBALLY RESPONSIVE AND INSTRUCTED TO KEEP OXYGEN IN PLACE. RT AND RN AT BEDSIDE MONITORING PATIENT.
--- NOTE | 2020-10-04 02:48 | NUR ---
0248 LULA TRIVEDI WAS NOTIFIED OF PATIENT'S C/O DIFFICULTY BREATHING WITH ORDER TO TRANSFUSE 1 UNIT PRBC STAT. ORDER NOTED. BLOOD BANK MADE AWARE C/O LIBBY. Addendum: 10/04/20 at 0422 by MELANIA PALACIO RN @[id number] rebekah quintanilla ordered iv fluid of NS to be increased from 75ml/hr to 100ml/hr. charge account clerk well aware. will carry out order as requested.
[2020-10-04 03:20] LABS: BASOPHILS % (AUTO) 0.2 % (0.0-2.0); EOSINOPHILS % (AUTO) 1.2 % (0.0-6.0); HEMATOCRIT 34 % (33-45); HEMOGLOBIN 11.2 g/dL (11.5-14.8); LYMPHOCYTES # (AUTO) 0.5 /CMM (0.8-4.8); LYMPHOCYTES % (AUTO) 4.6 % (20.0-44.0); MEAN CORPUSCULAR HGB CONC 33 g/dl (31.0-36.0); MEAN CORPUSCULAR VOLUME 83 fL (82-100); MONOCYTES # (AUTO) 0.4 /CMM (0.1-1.30); MONOCYTES % (AUTO) 3.2 % (2.0-12.0); NEUTROPHILS # (AUTO) 10.3 /CMM (1.8-8.9); NEUTROPHILS % (AUTO) 90.8 % (43.0-81.0); PLATELET COUNT (AUTO) 299 /CMM (150-450); RED BLOOD CELL COUNT(AUTO) 4.12 MIL/uL (4.0-5.2); WHITE BLOOD COUNT (AUTO) 11.3 K/uL (4.3-11.0)
--- NOTE | 2020-10-04 03:30 | NUR ---
RN NOTES PATIENT REMAINS IN NO ACUTE RESPIRATORY DISTRESS AT THIS TIME, NO CHANGES TO CONDITION/STATUS. AM PATIENT CARE DONE. SCREENING SPECIALIST WELL AWARE. WILL CONTINUE TO MONITOR AND REASSESS FOR ANY CHANGES THROUGHOUT THE SHIFT
[2020-10-04 03:35] LABS: ALANINE AMINOTRANSFERASE 22 U/L (12-78); ALBUMIN 3.7 g/dL (3.4-5.0); ALKALINE PHOSPHATASE 52 U/L (46-116); ASPARTATE AMINOTRANSFERASE 22 U/L (15-37); BILIRUBIN,TOTAL 0.8 mg/dL (0.2-1.0); CALCIUM, SERUM 9.1 mg/dL (8.5-10.1); CARBON DIOXIDE 25 mmol/L (21-32); CHLORIDE 105 mmol/L (98-107); CREATININE 1.5 mg/dL (0.6-1.3); GLUCOSE 120 mg/dL (74-106); IRON, SERUM 135 ug/dl (50-175); MAGNESIUM 1.8 mg/dL (1.8-2.4); PHOSPHORUS 3.9 mg/dL (2.5-4.9); POTASSIUM 3.9 mmol/L (3.5-5.1); SODIUM SERUM 138 mmol/L (136-145); TOTAL IRON BINDING CAPACITY 397 ug/dl (250-450); TOTAL PROTEIN, SERUM 7.5 g/dL (6.4-8.2); UREA NITROGEN, BLOOD 28 mg/dL (7-18)
[2020-10-04 03:50] LABS: CREATINE KINASE, TOTAL 47 U/L (26-192); FERRITIN 21 ng/mL (8-388)
[2020-10-04 04:00] VITALS: BP 150/92
[2020-10-04] MEDS: IV NS 0.9% 1,000 ML IV PRN ×2 (04:00→20:00)
--- NOTE | 2020-10-04 06:49 | NUR ---
RN CLOSING NOTE: PATIENT REMAINS IN ROOM IN NO SIGNS OF RESPIRATORY DISTRESS, PATIENT STILL ON 15L OF O2 VIA NRB MASKS; TOLERATING WELL SATURATING @ >95% SP02. SAFETY MEASURES IMPLEMENTED, BED IN LOWEST POSITION, LOCKED, SIDE RAILS UP, CALL LIGHT WITHIN REACH. ALL NEEDS AND ORDERS ADDRESSED DURING THE SHIFT. IV ACCESS MAINTAINED INTACT, SECURED AND FLUSHING WELL. ALL DUE MEDS GIVEN ORDERED & SCHEDULED ; PATIENT TOLERATED WELL. PATIENT KEPT CLEAN AND COMFORTABLE WITHIN THE SHIFT. PATIENT ENDORSED TO INCOMING SHIFT RN WITH STABLE VITAL SIGN AND FOR CONTINUITY OF CARE.
[2020-10-04 07:07] LABS: IMMUNOGLOBULIN A, SERUM 386 mg/dL (64-422); IMMUNOGLOBULIN G, SERUM 1194 mg/dL (586-1602); IMMUNOGLOBULIN M, SERUM 39 mg/dL (26-217)
--- NOTE | 2020-10-04 07:30 | NUR ---
RN OPENING NOTE: PATIENT IN BED, NO SIGNS OF RESPIRATORY DISTRESS. PATIENT CONTINUES ON 15 L OF O2 VIA NASAL CANNULA; TOLERATING WELL SATURATING @ >95% SP02. SAFETY MEASURES IMPLEMENTED, BED IN LOWEST POSITION, LOCKED, SIDE RAILS UP, CALL LIGHT WITHIN REACH. ALL NEEDS AND ORDERS ADDRESSES AT THIS TIME. IV ACCESS MAINTAINED INTACT, SECURED AND FLUSHING WELL. ALL DUE MEDS GIVEN ORDERED & SCHEDULED ; PATIENT TOLERATED WELL. WILL CONTINUE CURRENT POC.
[2020-10-04] MEDS: GLIMEPIRIDE 1 MG TABLET PO SCH (08:29)
[2020-10-04] MEDS: busPIRone 5 MG TABLET PO SCH (08:30)
[2020-10-04] MEDS: PANTOPRAZOLE 40 MG TABLET.DR PO SCH (08:30)
[2020-10-04] MEDS: METOPROLOL TARTRATE 25 MG TABLET PO SCH ×2 (08:31→16:56)
[2020-10-04 12:00] VITALS: BP 135/66
[2020-10-04 16:08] LABS: BASOPHILS % (AUTO) 0.2 % (0.0-2.0); EOSINOPHILS % (AUTO) 0.9 % (0.0-6.0); HEMATOCRIT 30 % (33-45); HEMOGLOBIN 9.8 g/dL (11.5-14.8); LYMPHOCYTES # (AUTO) 0.6 /CMM (0.8-4.8); LYMPHOCYTES % (AUTO) 4.5 % (20.0-44.0); MEAN CORPUSCULAR HGB CONC 32 g/dl (31.0-36.0); MEAN CORPUSCULAR VOLUME 82 fL (82-100); MONOCYTES # (AUTO) 0.8 /CMM (0.1-1.30); NEUTROPHILS # (AUTO) 11.2 /CMM (1.8-8.9); NEUTROPHILS % (AUTO) 88.4 % (43.0-81.0); PLATELET COUNT (AUTO) 262 /CMM (150-450); WHITE BLOOD COUNT (AUTO) 12.7 K/uL (4.3-11.0)
--- NOTE | 2020-10-04 16:53 | NUR ---
CBC results in. Notified Dr. Barba of the results, no new orders received.
--- NOTE | 2020-10-04 19:30 | NUR ---
RN CLOSING NOTE: PATIENT IN BED, NO SIGNS OF RESPIRATORY DISTRESS. PATIENT TITRATED TO 4 l/MIN OF O2 VIA NASAL CANNULA; TOLERATING WELL SATURATING @ >92% SP02. SAFETY MEASURES IMPLEMENTED, BED IN LOWEST POSITION, LOCKED, SIDE RAILS UP, CALL LIGHT WITHIN REACH. ALL NEEDS AND ORDERS ADDRESSES AT THIS TIME. IV ACCESS MAINTAINED INTACT, SECURED AND FLUSHING WELL. ALL DUE MEDS GIVEN ORDERED & SCHEDULED ; PATIENT TOLERATED WELL. BLOOD CULTURE AND LACTATE LEVEL PENDING. WILL ENDORSE TO NIGHT NURSE FOR LEO.
--- NOTE | 2020-10-04 19:30 | NUR ---
RN OPENING NOTES: RECEIVED PT A/OX2 IN BED RESTING COMFORTABLY. PATIENT IN NO S/SX OF ACUTE DISTRESS AT THIS TIME. NO SOB NOTED. PATIENT'S BREATHING IS EVEN AND UNLABORED. PATIENT IS ON 4L OF OXYGEN VIA NC; TOLERATING WELL. PATIENT ON FULL LIQUID DIET; TOLERATES WELL. NOTED IV SITE ON (R HAND AND L UA MIDLINE #18; BOTH PATENT, INTACT AND FLUSHING WELL; NO S/S OF INFECTION OR INFILTRATION. WITH IV FLUID RUNNING ORDERED. SAFETY MEASURES HAVE BEEN PROVIDED AND IMPLEMENTED. PATIENT BED ALARM IS ON. HEAD OF BED ELEVATED. BED IS LOCKED, IN LOWEST POSITION AND SIDE RAILS UP. CALL LIGHT WITHIN REACH OF THE PATIENT. APPLICABLE ISOLATION PRECAUTIONS IN PLACE. WILL CONTINUE TO MONITOR AND REASSESS FOR ANY CHANGES AND WILL CARRY OUT ANY ONGOING AND ACTIVE MD ORDER.
[2020-10-04 20:00] VITALS: BP 138/78
[2020-10-04] MEDS: ATORVASTATIN 40 MG TABLET PO SCH (21:42)
[2020-10-04] MEDS: MIRTAZAPINE 15 MG TABLET PO SCH (21:42)
--- NOTE | 2020-10-04 23:00 | NUR ---
RN NOTES FRAME CATCHER ADVISED RN THAT PT REMOVED HER IV ACCESS/LINES WHILE HAVING PT CARE. SHIFT SUPERVISOR MADE AWARE. WILL FACILITATE INSERTION OF IV ACCESS FOR CONTINUITY OF CARE.
--- NOTE | 2020-10-04 23:30 | NUR ---
RN NOTES NO CHANGE IN PATIENT CONDITION AT THIS TIME PATIENT VITALS STABLE, NO SIGNS OF ACUTE RESPIRATORY DISTRESS. FLAT BED KNITTER MADE AWARE. WILL CONTINUE TO MONITOR AND REASSESS FOR ANY CHANGES THROUGHOUT THE SHIFT.
[2020-10-05] VITALS: BP 136/55
--- NOTE | 2020-10-05 | NUR ---
RN NOTES FACILITATED IV ACCESS/LINE INSERTION @ L ARM #22 AND R HAND #22. PATENT, INTACT AND FLUSHING WELL. HRIS ADMINISTRATOR MADE AWARE.
--- NOTE | 2020-10-05 03:30 | NUR ---
RN NOTES PATIENT REMAINS IN NO ACUTE RESPIRATORY DISTRESS AT THIS TIME, NO CHANGES TO CONDITION/STATUS. AM PATIENT CARE DONE. ORAL AND MAXILLOFACIAL SURGEON WELL AWARE. WILL CONTINUE TO MONITOR AND REASSESS FOR ANY CHANGES THROUGHOUT THE SHIFT
[2020-10-05 04:00] VITALS: BP 155/56
[2020-10-05 05:58] LABS: BASOPHILS # (AUTO) 0.1 /CMM (0.0-0.2); BASOPHILS % (AUTO) 0.7 % (0.0-2.0); EOSINOPHILS % (AUTO) 2.6 % (0.0-6.0); HEMATOCRIT 30 % (33-45); HEMOGLOBIN 9.7 g/dL (11.5-14.8); LYMPHOCYTES # (AUTO) 0.9 /CMM (0.8-4.8); LYMPHOCYTES % (AUTO) 12.1 % (20.0-44.0); MEAN CORPUSCULAR HGB CONC 33 g/dl (31.0-36.0); MEAN CORPUSCULAR VOLUME 82 fL (82-100); MONOCYTES # (AUTO) 0.8 /CMM (0.1-1.30); MONOCYTES % (AUTO) 11.1 % (2.0-12.0); NEUTROPHILS # (AUTO) 5.5 /CMM (1.8-8.9); NEUTROPHILS % (AUTO) 73.5 % (43.0-81.0); PLATELET COUNT (AUTO) 230 /CMM (150-450); RED BLOOD CELL COUNT(AUTO) 3.64 MIL/uL (4.0-5.2); WHITE BLOOD COUNT (AUTO) 7.4 K/uL (4.3-11.0)
[2020-10-05] MEDS: IV NS 0.9% 1,000 ML IV PRN (06:10)
[2020-10-05 06:30] LABS: CALCIUM, SERUM 8.7 mg/dL (8.5-10.1); CREATININE 1.2 mg/dL (0.6-1.3); POTASSIUM 3.5 mmol/L (3.5-5.1)
--- NOTE | 2020-10-05 06:50 | NUR ---
RN CLOSING NOTE: PATIENT REMAINS IN ROOM IN NO SIGNS OF RESPIRATORY DISTRESS, PATIENT STILL ON 4L OF O2 VIA NC; TOLERATING WELL SATURATING @ >95% SP02. SAFETY MEASURES IMPLEMENTED, BED IN LOWEST POSITION, LOCKED, SIDE RAILS UP, CALL LIGHT WITHIN REACH. ALL NEEDS AND ORDERS ADDRESSED DURING THE SHIFT. IV ACCESS MAINTAINED INTACT, SECURED AND FLUSHING WELL. ALL DUE MEDS GIVEN ORDERED & SCHEDULED ; PATIENT TOLERATED WELL. PATIENT KEPT CLEAN AND COMFORTABLE WITHIN THE SHIFT. PATIENT ENDORSED TO INCOMING SHIFT RN WITH STABLE VITAL SIGN AND FOR CONTINUITY OF CARE.
--- NOTE | 2020-10-05 08:00 | NUR ---
RN OPENING NOTE RECEIVED PATIENT IN BED SLEEPING, AO X 2, ABLE TO RESPONDS ALL STIMULI. SKIN IS WARM TO TOUCH, KEEP CLEAN/DRY, INTACT IV SITE. RESPIRATORY EVEN AND UNLABORED WITH OXYGEN AT 4LPM. KEPT ELEVATED HOB FOR ENSURE AIRWAY AND ASPIRATION PRECAUTION, ALSO LOWEST BED POSITION FOR SAFETY. CALL LIGHT WITHIN REACH, WILL CONTINUE TO MONITOR.
[2020-10-05 08:07] LABS: *SPE ALBUMIN 3.2 g/dL (2.9-4.4); *SPE ALPHA-1-GLOBULIN 0.2 g/dL (0.0-0.4); *SPE ALPHA-2-GLOBULIN 0.7 g/dL (0.4-1.0); *SPE BETA GLOBULIN 1.1 g/dL (0.7-1.3); *SPE GLOBULIN, TOTAL 3.1 g/dL (2.2-3.9); *SPE M-SPIKE Not Observed g/dL (Not Observed); *SPEGAMMA GLOBULIN 1.1 g/dL (0.4-1.8)
[2020-10-05] MEDS: PANTOPRAZOLE 40 MG TABLET.DR PO SCH (08:09)
[2020-10-05 08:12] VITALS: BP 165/64
[2020-10-05] MEDS: GLIMEPIRIDE 1 MG TABLET PO SCH (08:12)
[2020-10-05] MEDS: busPIRone 5 MG TABLET PO SCH (08:12)
[2020-10-05] MEDS: METOPROLOL TARTRATE 25 MG TABLET PO SCH (08:12)
--- NOTE | 2020-10-05 12:00 | NUR ---
[PATIENT DISCHARGE TO BACK TO [facility], GIVEN REPORT ZORA/BRANCH SERVICE LEADER INCLUDE FOLLOW DR. MERCHANT FOR H/H Q 2WWEKS X 6 WEEKS.
--- NOTE | 2020-10-05 13:19 | NUR ---
2EMTs PICKED UP PATIENT, DENIES PAIN OR DISTRESS, IN STABLE CONDITION.
== END 2020-10-05 13:10 | DRG 663 ==
LOC: ER 13:19 → TELE1 15:35 → MEDSG1 10-03 08:59 → TELE1 10-04 03:25
PROVIDERS: ADMIT Nurse Practitioner Acute Care; ATTEND Nurse Practitioner Acute Care
PROC: 30233N1 Transfusion of Nonautologous Red Blood Cells into Peripheral Vein, Percutaneous Approach (ICD-10-PCS; principal; 2020-10-02)
PROC: 05H633Z Insertion of Infusion Device into Left Subclavian Vein, Percutaneous Approach (ICD-10-PCS; 2020-10-03)
PROC: B547ZZA Ultrasonography of Left Subclavian Vein, Guidance (ICD-10-PCS; 2020-10-03)
DX: D50.9 Iron deficiency anemia, unspecified (principal); N17.0 Acute kidney failure with tubular necrosis; E87.2 Acidosis; D68.9 Coagulation defect, unspecified; E83.42 Hypomagnesemia; E11.9 Type 2 diabetes mellitus without complications; E78.5 Hyperlipidemia, unspecified; F03.90 Unspecified dementia, unspecified severity, without behavioral disturbance, psychotic disturbance, mood disturbance, and anxiety; K21.9 Gastro-esophageal reflux disease without esophagitis; Z79.84 Long term (current) use of oral hypoglycemic drugs; D72.829 Elevated white blood cell count, unspecified; I10 Essential (primary) hypertension; T39.395A Adverse effect of other nonsteroidal anti-inflammatory drugs [NSAID], initial encounter; Y92.89 Other specified places as the place of occurrence of the external cause; Z20.822 Contact with and (suspected) exposure to COVID-19
CPT/HCPCS: 36410; 36415; 71045-TC; 76770-TC; 80048-TC; 80053-TC; 80061-TC; 80076-TC; 82272-TC; 82550-TC; 82570-TC; 82728-TC; 82784; 83021; 83540-TC; 83615-TC; 83735-TC; 83970; 84100-TC; 84155; 84155-TC; 84165; 84300-TC; 84443-TC; 84484-TC; 85025-TC; 85045-TC; 85610-TC; 85660; 85730-TC; 86334; 86850-TC; 87040-TC; 87081-TC; G0378; J1200; J1940; J3475; J7030; J7040; J7050; P9016; U0003

== ENCOUNTER 2020-10-16 18:20 | Inpatient (IN) | payer MEDICARE, MEDICAID ==
[~2020-10-16] VITALS: Ht 165.1 cm; Wt 63.5 kg
[~2020-10-16 18:20] MED LIST changes: +GLIM1TAB18 PO; +LOPE2TAB23 PO; -PANT40TA2 PO; +PANT40TA49 PO; +SERT-438 PO
--- NOTE | 2020-10-16 18:21 | NUR ---
AT BEDSIDE FOR EVAL.
--- NOTE | 2020-10-16 18:23 | NUR ---
PT IS WHEELED TO CT SCAN VIA CODE STROKE PROTOCOL.
--- NOTE | 2020-10-16 18:30 | NUR ---
SONIYA SINGLETON From [facility] Staff noticed her leaning towards the Right side, + weakness. alert and oriented x1. denies pain. respiration regular and unlabored. attached on a monitor. will continue to monitor the patient.
--- NOTE | 2020-10-16 18:31 | NUR ---
DR. VILLA SPEAKING WITH DR. IRCHARDSON
[2020-10-16] MEDS ORDERED: IBUP-1953 PO (18:38)
[2020-10-16 18:51] LABS: CALCIUM, SERUM 9.9 mg/dL (8.5-10.1); CREATININE 1.2 mg/dL (0.6-1.3); POTASSIUM 4.3 mmol/L (3.5-5.1)
--- NOTE | 2020-10-16 18:53 | NUR ---
[facility]ED [employer] [facility] [phone] VILLA TO CALL DR. RICHARDSON.
--- NOTE | 2020-10-16 19:02 | NUR ---
CALLED MEETA FOR READING.
--- NOTE | 2020-10-16 19:43 | NUR ---
Lorna luciano in EDM - 10/16/20 at 1944 by SHOAIB LESLEY [id number] FROM URGENT CARE FOR L FLANK PAIN RADIATING TO ABD. -NVD HX KIDNEY STONES. GIVEN 8MG ZOFRAN 30MG KETOROLAC
--- NOTE | 2020-10-16 19:44 | NUR ---
COVID SWAB DONE AND SENT TO THE LAB
[2020-10-16 19:52] LABS: BASOPHILS # (AUTO) 0.1 /CMM (0.0-0.2); BASOPHILS % (AUTO) 0.8 % (0.0-2.0); EOSINOPHILS % (AUTO) 2.4 % (0.0-6.0); HEMATOCRIT 30 % (33-45); HEMOGLOBIN 9.5 g/dL (11.5-14.8); LYMPHOCYTES # (AUTO) 1.3 /CMM (0.8-4.8); LYMPHOCYTES % (AUTO) 17.5 % (20.0-44.0); MEAN CORPUSCULAR HGB CONC 32 g/dl (31.0-36.0); MEAN CORPUSCULAR VOLUME 85 fL (82-100); MONOCYTES # (AUTO) 0.6 /CMM (0.1-1.30); NEUTROPHILS # (AUTO) 5.4 /CMM (1.8-8.9); NEUTROPHILS % (AUTO) 71.3 % (43.0-81.0); PLATELET COUNT (AUTO) 319 /CMM (150-450); RED BLOOD CELL COUNT(AUTO) 3.55 MIL/uL (4.0-5.2); WHITE BLOOD COUNT (AUTO) 7.6 K/uL (4.3-11.0)
[2020-10-16] MEDS ORDERED: ASPIRIN 81 MG TAB.CHEW PO ONE (20:30)
--- NOTE | 2020-10-16 20:44 | NUR ---
COVID SWAB DONE AND SENT TO THE LAB
--- NOTE | 2020-10-16 20:45 | NUR ---
COVID LAB NEGATIVE PER LAB
[2020-10-16] MEDS ORDERED: ASPIRIN 81 MG TAB.CHEW ONE (21:02)
[2020-10-16] MEDS ORDERED: IV NS 0.9% 500 ML BAG IV ONE (22:00)
[2020-10-16] MEDS ORDERED: ATORVASTATIN 40 MG TABLET PO SCH (22:30)
[2020-10-16] MEDS ORDERED: DOCUSATE SODIUM 100 MG CAPSULE PO PRN (22:30)
[2020-10-16] MEDS ORDERED: DEXTROSE 50%-WATER 50 ML DISP.SYRIN IV PRN (22:30)
--- NOTE | 2020-10-16 23:02 | NUR ---
the patient is transfered to [facility].
[2020-10-16] MEDS: MIRTAZAPINE 15 MG TABLET PO SCH (23:17)
[2020-10-16 23:29] VITALS: BP 156/87
--- NOTE | 2020-10-16 23:45 | NUR ---
AD COMPOSITOR NOTE: Rec'd pt via geoff accompanied by RN and EMT, transferred to bed. Rec'd bedside report from ROSY Naik. Pt A&Ox2-3, primarily Tajik speaking but understands Bermudian. On room air, O2 sat WNL. No resp distress noted at this time. SR on tele monitor. IV site on right hand #20 patent and flushed. Dressing c/d/i. Pt cleaned, skin assessment done. Bilateral arm bruising noted. Bilateral legs/feet swelling noted. Pt able to follow commands and make needs known. Nursing bedside swallow eval done, pt able to swallow. Oriented to room and call light. Safety measures in place. Will continue to monitor.
[2020-10-16 23:53] LABS: THYROID STIMULATING HORMONE 3.164 uIU/mL (0.358-3.74)
[2020-10-17] VITALS: BP 156/87
[2020-10-17 00:19] LABS: CALCIUM, SERUM 9.5 mg/dL (8.5-10.1); CREATININE 1.2 mg/dL (0.6-1.3); POTASSIUM 4.4 mmol/L (3.5-5.1)
[2020-10-17 00:32] LABS: ALBUMIN 3.4 g/dL (3.4-5.0); BILIRUBIN,TOTAL 0.4 mg/dL (0.2-1.0); TOTAL PROTEIN, SERUM 7.2 g/dL (6.4-8.2)
[2020-10-17 04:00] VITALS: BP 158/73
[2020-10-17 05:59] LABS: BASOPHILS # (AUTO) 0.2 /CMM (0.0-0.2); BASOPHILS % (AUTO) 3.3 % (0.0-2.0); EOSINOPHILS % (AUTO) 2.3 % (0.0-6.0); HEMATOCRIT 31 % (33-45); LYMPHOCYTES # (AUTO) 1.4 /CMM (0.8-4.8); LYMPHOCYTES % (AUTO) 20.7 % (20.0-44.0); MEAN CORPUSCULAR HGB CONC 32 g/dl (31.0-36.0); MEAN CORPUSCULAR VOLUME 83 fL (82-100); MONOCYTES # (AUTO) 0.6 /CMM (0.1-1.30); MONOCYTES % (AUTO) 8.3 % (2.0-12.0); NEUTROPHILS # (AUTO) 4.5 /CMM (1.8-8.9); NEUTROPHILS % (AUTO) 65.4 % (43.0-81.0); PLATELET COUNT (AUTO) 300 /CMM (150-450); RED BLOOD CELL COUNT(AUTO) 3.75 MIL/uL (4.0-5.2); WHITE BLOOD COUNT (AUTO) 6.9 K/uL (4.3-11.0)
[2020-10-17 06:39] LABS: CALCIUM, SERUM 9.1 mg/dL (8.5-10.1); CREATININE 1.1 mg/dL (0.6-1.3); POTASSIUM 4.4 mmol/L (3.5-5.1)
--- NOTE | 2020-10-17 07:25 | NUR ---
QUARRY SUPERVISOR OPEN PIT OPENING NOTES RECEIVED PT AWAKE IN BED IN NO ACUTE SIGNS OF DISTRESS. A/O X2-3. VERBALLY RESPONSIVE, CALM WITH EPISODES OF FORGETFULNESS, DENIES PAIN OR ANY DISCOMFORTS AT THIS TIME. EXTERNAL CORRECTIONAL CASE MANAGER SHOWS NSR WITH BBB'S HR ON THE HIGH 60'S, NO C/O CARDIAC DISTRESS VOICED AT THIS TIME. IV SITE ON RIGHT WRIST G#20 INTACT AND PATENT. SAFETY MEASURE IN PLACE: BED IN LOWEST LOCKED POSITION WITH SR UP X2. CALL LIGHT WITHIN REACH. WILL CONTINUE TO MONITOR PT ACCORDINGLY. .
[2020-10-17] MEDS: INSULIN REGULAR, HUMAN 100 UNIT/ML 3 ML VIAL SQ PRN ×3 (07:56→17:05)
[2020-10-17] MEDS: BLOOD SUGAR DIAGNOSTIC 1 EACH STRIP IN SCH ×4 (07:56→21:49)
[2020-10-17 08:00] VITALS: BP 163/91
[2020-10-17] MEDS: PANTOPRAZOLE 40 MG TABLET.DR PO SCH (08:00)
[2020-10-17] MEDS: busPIRone 5 MG TABLET PO SCH (08:09)
[2020-10-17] MEDS: MEGESTROL ACETATE SUSP 400 MG/10 ML UDC PO SCH (08:09)
[2020-10-17] MEDS: METOPROLOL TARTRATE 25 MG TABLET PO SCH ×2 (08:10→16:54)
[2020-10-17] MEDS: ASPIRIN EC 81 MG TABLET.DR PO SCH (08:10)
[2020-10-17] MEDS: CHOLECALCIFEROL 1,000 UNIT TABLET (VIT D3) PO SCH (08:10)
[2020-10-17] MEDS: SERTRALINE HCL 50 MG TABLET PO SCH (08:10)
--- NOTE | 2020-10-17 08:27 | NUR ---
RN NOTES PT'S BLOOD SUGAR BEFORE BREAKFAST WAS 60MG/DL, REPEATED AND WAS 62 MG/DL. ORANGE JUICE AND BREAKFAST WAS GIVEN AND PT WAS EVALUATED FOR SWALLOWING. PT SWALLOWING WELL, NO CHOCKING, COUGHING OR ASPIRATION NOTED. BLOOD SUGAR WAS RECHECKED AFTER BREAKFAST AND WAS 129MG/DL. WILL CONTINUE TO MONITOR.
--- NOTE | 2020-10-17 11:08 | NUR ---
Cost Control Supervisor note: disabilities services officer consult requested for stroke. Upon consult, patient presented lethargic and irritable. Patient was unable to provide SW with information at this time. disabilities services officer will follow up with the patient at a later time, when she is more alert.
[2020-10-17 16:00] VITALS: BP 123/76
--- NOTE | 2020-10-17 18:34 | NUR ---
MS RN CLOSING NOTES PT IN BED ASLEEP AT THIS TIME, EASILY AROUSABLE. HOB ELEVATED. A/O X2-3. VERBALLY RESPONSIVE. EPISODES OF FORGETFULNESS AND CONFUSION NOTED DURING SHIFT, RE-ORIENTED AND RE-DIRECTED PRN. IV ACCESS ON RIGHT WRIST G#20 INTACT, PATENT AND FLUSHES WELL. DIABETIC STATUS CLOSELY MONITORED. PT TURNED AND REPOSITIONED Q 2HRS AND PRN. ALL NEEDS AND CARE PROVIDED WELL. SAFETY MEASURE IN PLACE: BED IN LOWEST LOCKED POSITION WITH SR UP X2. CALL LIGHT WITHIN REACH. WILL ENDORSE LEO TO RIVERBOAT MASTER NURSE
--- NOTE | 2020-10-17 19:30 | NUR ---
MS RN OPENING NOTE RECEIVED PATIENT IN BED. A/OX2-3. TOLERATING ROOM AIR. RESPIRATIONS ARE EVEN AND UNLABORED. NO S/S SOB NOTED. NO C/O PAIN AT THIS TIME. IN NO APPARENT DISTRESS. IV ACCESS IN RIGHT WRIST #20 PATENT AND SALINE LOCKED. PATIENT IS ABLE TO RAISE BOTH ARMS BUT BLE ARE VERY WEAK. ANSWERS QUESTIONS AND FOLLOWS COMMANDS. BED IS LOW AND LOCKED, HOB ELEVATED IN SEMI FOWLERS, SIDE RIALS UP X3, CALL LIGHT WITHIN REACH. WILL CONTINUE TO MONITOR THROUGHOUT SHIFT.
[2020-10-17 20:00] VITALS: BP 133/71
[2020-10-17] MEDS: MIRTAZAPINE 15 MG TABLET PO SCH (21:49)
[2020-10-17] MEDS ORDERED: ATORVASTATIN 40 MG TABLET PO SCH (22:00)
[2020-10-18 04:00] VITALS: BP 156/68
--- NOTE | 2020-10-18 06:16 | NUR ---
MS RN CLOSING NOTE PATIENT RESTING IN BED. A/OX2-3. REMAIN TOLERATING ROOM AIR. NO RESP DISTRESS. NO PAIN NOTED. NO DISTRESS. IV ACCESS MAINTAINED IN RIGHT WRIST #20. BED REMAINS LOW AND LOCKED, HOB ELEVATED IN SEMI FOWLERS, SIDE RIALS UP X3, CALL LIGHT WITHIN REACH. WILL ENDORSE TO ONCOMING SHIFT.
[2020-10-18 08:00] VITALS: BP 117/98
--- NOTE | 2020-10-18 08:00 | NUR ---
ms rn note patient in bed awake alert x2 with confusion, on ra no sob noted at this tome , rt wrist hl intact and flushed well , bed in lowest and locked position, st at bedside , patent, pass swallow eval, able to swallow well but need to be feed , able to move upper and lower extremities ,vision check , able to see all quadrat ,call light within reach , will cont to monitor
[2020-10-18] MEDS: MEGESTROL ACETATE SUSP 400 MG/10 ML UDC PO SCH (08:14)
[2020-10-18] MEDS: METOPROLOL TARTRATE 25 MG TABLET PO SCH ×2 (08:15→16:20)
[2020-10-18] MEDS: ASPIRIN EC 81 MG TABLET.DR PO SCH (08:15)
[2020-10-18] MEDS: PANTOPRAZOLE 40 MG TABLET.DR PO SCH (08:16)
[2020-10-18] MEDS: busPIRone 5 MG TABLET PO SCH (08:16)
[2020-10-18] MEDS: SERTRALINE HCL 50 MG TABLET PO SCH (08:16)
[2020-10-18] MEDS: CHOLECALCIFEROL 1,000 UNIT TABLET (VIT D3) PO SCH (08:16)
[2020-10-18] MEDS: BLOOD SUGAR DIAGNOSTIC 1 EACH STRIP IN SCH ×2 (08:21→11:35)
[2020-10-18] MEDS ORDERED: CLOPIDOGREL BISULFATE 75 MG TABLET PO SCH (09:00)
[2020-10-18] MEDS ORDERED: ATOR40TA PO (10:31)
[2020-10-18] MEDS ORDERED: CLOP75TA15 PO (10:31)
--- NOTE | 2020-10-18 11:44 | NUR ---
RN NOTE CALLED TO FACILITY SPOKE WITH ZORA NOTIFIED THAT PATIENT WILL COMING BACK , ALSO SPOKE WITH DAUGHTER BETSY NOTIFIED THAT PATIENT WILL BE DISCHARGE TODAY Addendum: 10/18/20 at 1149 by MODESTO PENA RN CALLED PHARMACY NOTIFIED ABOUT NEW PRESCRIPTION , PHARMACIST STATED THAT PX HAS BEEN RECEIVED, WILL DELIVER TO [facility] WHEN MEDICATION READY
[2020-10-18] MEDS: INSULIN REGULAR, HUMAN 100 UNIT/ML 3 ML VIAL SQ PRN (12:00)
--- NOTE | 2020-10-18 12:54 | NUR ---
MS RN NOTE SPOKE WITH HODA FERRER DNP NOTIFIED THAT PATIENT WILL BE DISCHARGED AND IF NEEDED PT TO CONT TX ,STATED NOT AT THIS TIME BUT INFORMATION SECURITY ENGINEER FROM [facility] WILL BE F\U WITH PATIENT AT [facility] , Addendum: 10/18/20 at 1300 by MODESTO PENA RN CALLED TO PT , SPOKE WINSOME SINGH , STATED NO NEED PT FOR NOW PATIENT IS W\C BOUNDED
--- NOTE | 2020-10-18 14:35 | NUR ---
SS consult: SS Consult requested for Code Stroke. The pt. is an 80 year old female in [place]. Per pt.'s nurse, the pt. has Hx. of Mild Dementia.The pt. is a poor historian. The pt. appears clean and is A & O x 1 (person). Pt. is irritable and was cooperative throughout interview.Pt. receive score of 3 on Depression severity scale. No psychiatry consult needed. provided provided pt. with Stroke empowerment material. Per nurse, the pt. to be discharged back to [facility] A/L [phone]. Addendum: 10/18/20 at 1437 by TYE LUTHER HOMA conducted interview in Emirati as pt. is Emirati peaking.
--- NOTE | 2020-10-18 15:11 | NUR ---
MS RN NOTE OT AT BEDSIDE ,ABLE TO EXCESSES IN BED ,NEED MOD TO MAX ASSISTANCE TO GET UP FOR EDGE OF BED WILL CONT TO MONITOR
[2020-10-18 16:10] VITALS: BP 145/68
[2020-10-18 16:20] VITALS: BP 145/68
--- NOTE | 2020-10-18 16:29 | NUR ---
ms rn note called to case management coordinator about ambulance not arrived yet ,stated that will come soon, will f\u
--- NOTE | 2020-10-18 16:58 | NUR ---
MS GALLEGOS NOTE AMBULANCE ARRIVED, REPORT GIVEN , BELONGING TAKEN , REPORT GIVEN TO AMBULANCE CREW Addendum: 10/18/20 at 1706 by MODESTO PENA RN HL REMOVED ON RT WRIST , NO BLEEDING NOTED , DRY DRESSING APPLIED, WENT TO ASSISTED LIVING WITH STABLE CONDITION NO SOB NOTED OR DISCOMFORT
== END 2020-10-18 17:10 | DRG 420 ==
LOC: ER 18:23 → TELE 21:11 → TELE1 22:09 → MEDSG1 10-17 09:31
PROVIDERS: ADMIT Nurse Practitioner Acute Care; ATTEND Nurse Practitioner Acute Care
DX: E11.649 Type 2 diabetes mellitus with hypoglycemia without coma (principal); N17.0 Acute kidney failure with tubular necrosis; E86.0 Dehydration; D50.9 Iron deficiency anemia, unspecified; E78.5 Hyperlipidemia, unspecified; G51.0 Bell's palsy; K21.9 Gastro-esophageal reflux disease without esophagitis; R29.706 NIHSS score 6; E11.65 Type 2 diabetes mellitus with hyperglycemia; I10 Essential (primary) hypertension; Z20.822 Contact with and (suspected) exposure to COVID-19; Z79.84 Long term (current) use of oral hypoglycemic drugs; Z86.73 Personal history of transient ischemic attack (TIA), and cerebral infarction without residual deficits; G45.9 Transient cerebral ischemic attack, unspecified; F01.50 Vascular dementia, unspecified severity, without behavioral disturbance, psychotic disturbance, mood disturbance, and anxiety
CPT/HCPCS: 36415; 70450-TC; 71045-TC; 80048-TC; 80053-TC; 80061-TC; 82962-TC; 83880; 84443-TC; 84484-TC; 85025-TC; 85652-TC; 85730-TC; 87081-TC; 92526; 92611-TC; 97112-TC; 97530-TC; C9803; G0378; J1815; U0003

== ENCOUNTER 2021-02-07 17:05 | Inpatient (IN) | payer MEDICARE, MEDICAID ==
[~2021-02-07] VITALS: Ht 157.5 cm; Wt 58.1 kg
[~2021-02-07 17:05] MED LIST changes: +CLOP75TA15 PO; -GLIM1TAB18 PO; +IBUP-1953 PO; -METF-440 PO; +MIRT-90 PO; -MIRT15TA7 PO; -SERT-438 PO; +SERT50TA12 PO
--- NOTE | 2021-02-07 17:22 | NUR ---
JILLIAN LUNA FRM [facility] FOR LOW HGB/HCT 4.4 / 15.2. THE PATIENT ALERT AND ORIENTED X2. DENIES PAIN. IN ROOM AIR AND DENIES SOB. RESPIRATION REGULAR AND UNLABORED. ATTACHED TO THE MONITOR. WARM BLANKET PROVIDED FOR COMFORT. WILL CONTINUE TO MONITOR THE PATIENT.
[2021-02-07] MEDS ORDERED: GLIM1TAB18 PO (17:37)
[2021-02-07] MEDS ORDERED: METF-442 PO (17:37)
[2021-02-07 17:41] LABS: BASOPHILS # (AUTO) 0.1 K/uL (0.0-0.2); BASOPHILS % (AUTO) 0.8 % (0.0-2.0); EOSINOPHILS % (AUTO) 2.8 % (0.0-6.0); LYMPHOCYTES # (AUTO) 1.2 K/uL (0.8-4.8); MEAN CORPUSCULAR HGB CONC 29 g/dl (31.0-36.0); MEAN CORPUSCULAR VOLUME 74 fL (82-100); MONOCYTES # (AUTO) 0.8 K/uL (0.1-1.30); MONOCYTES % (AUTO) 10.1 % (2.0-12.0); NEUTROPHILS # (AUTO) 5.5 K/uL (1.8-8.9); NEUTROPHILS % (AUTO) 71.3 % (43.0-81.0); PLATELET COUNT (AUTO) 493 K/uL (150-450); RED BLOOD CELL COUNT(AUTO) 2.22 MIL/uL (4.0-5.2); WHITE BLOOD COUNT (AUTO) 7.7 K/uL (4.3-11.0)
[2021-02-07 17:51] LABS: HEMOGLOBIN 4.8 g/dL (11.5-14.8)
[2021-02-07 17:52] LABS: HEMATOCRIT 16 % (33-45)
[2021-02-07 17:53] LABS: ALANINE AMINOTRANSFERASE 16 U/L (12-78); ALBUMIN 3.8 g/dL (3.4-5.0); ALKALINE PHOSPHATASE 60 U/L (46-116); ASPARTATE AMINOTRANSFERASE 22 U/L (15-37); BILIRUBIN,DIRECT 0.1 mg/dL (0.0-0.2); BILIRUBIN,TOTAL 0.3 mg/dL (0.2-1.0); CALCIUM, SERUM 9.3 mg/dL (8.5-10.1); CARBON DIOXIDE 20 mmol/L (21-32); CHLORIDE 110 mmol/L (98-107); GLUCOSE 136 mg/dL (74-106); POTASSIUM 5.4 mmol/L (3.5-5.1); SODIUM SERUM 146 mmol/L (136-145); TOTAL PROTEIN, SERUM 7.8 g/dL (6.4-8.2); UREA NITROGEN, BLOOD 35 mg/dL (7-18)
--- NOTE | 2021-02-07 18:08 | NUR ---
MOVE SHEET SUBMITTED.
--- NOTE | 2021-02-07 18:20 | NUR ---
[facility] CALLED SLUBBER HAND PAGED.
[2021-02-07] MEDS ORDERED: IV NS 0.9% 500 ML BAG IV ONE (18:30)
[2021-02-07] MEDS ORDERED: ZOLPIDEM TARTRATE 5 MG TABLET PO PRN (19:30)
[2021-02-07] MEDS ORDERED: ONDANSETRON HCL/PF 4 MG/2 ML VIAL IVP PRN (19:30)
[2021-02-07] MEDS ORDERED: *INSULIN REGULAR(HUMULIN R)HUM 100 UNIT/ML VIAL SQ PRN (19:30)
[2021-02-07] MEDS ORDERED: IBUPROFEN 400 MG TABLET PO PRN (19:30)
[2021-02-07] MEDS ORDERED: DEXTROSE 50%-WATER 50 ML DISP.SYRIN IV PRN (19:30)
[2021-02-07] MEDS ORDERED: MAGNESIUM HYDROXIDE 30 ML UDC PO PRN (19:30)
[2021-02-07] MEDS ORDERED: SODIUM POLYSTYRENE SULFONATE 15 G/60 ML BOTTLE PO ONE (19:30)
[2021-02-07] MEDS ORDERED: ACETAMINOPHEN 325 MG TABLET PO PRN ×2 (19:30)
[2021-02-07] MEDS ORDERED: DOCUSATE SODIUM 100 MG CAPSULE PO PRN (19:30)
[2021-02-07] MEDS ORDERED: MAG HYDROX/AL HYDROX/SIMETH 30 ML UDC PO PRN (19:30)
[2021-02-07] MEDS ORDERED: Z GUARD REMEDY 2 OZ OINT TP PRN (19:30)
--- NOTE | 2021-02-07 20:25 | NUR ---
COVID SWAB SENT TO LAB
--- NOTE | 2021-02-07 20:50 | NUR ---
BLOOD TRANSFUSION STARTED. CHICHO VSS, WILL CONTINUE TO MONITOR.
[2021-02-07] MEDS ORDERED: ATORVASTATIN 40 MG TABLET PO SCH (22:00)
[2021-02-07] MEDS ORDERED: MIRTAZAPINE 15 MG TABLET PO SCH (22:00)
[2021-02-07] MEDS ORDERED: LOPERAMIDE HCL (2 MG CAP) 2 MG CAPSULE PO PRN (23:00)
[2021-02-07] MEDS ORDERED: ONDANSETRON 4 MG TAB.RAPDIS PO PRN (23:00)
--- NOTE | 2021-02-07 23:40 | NUR ---
REPORT GIVEN TO EDSON GALLEGOS
--- NOTE | 2021-02-07 23:58 | NUR ---
PATIENT TRANSFERRED UNDER ACLS
[2021-02-08] VITALS (10 sets, daily range): BP systolic 110–157; BP diastolic 35–79
[2021-02-08] MEDS: BLOOD SUGAR DIAGNOSTIC 1 EACH STRIP VI SCH ×4 (02:25→16:35)
[2021-02-08] MEDS: INSULIN REGULAR, HUMAN 100 UNIT/ML 3 ML VIAL SQ PRN ×2 (02:26→11:19)
[2021-02-08] MEDS ORDERED: SODIUM POLYSTYRENE SULFONATE 15 G/60 ML BOTTLE ONE (02:29)
--- NOTE | 2021-02-08 06:34 | NUR ---
RN notes Admitted a 80 year old female from ER on a stretcher accompanied by two staff with diagnosis Anemia. Hemoglobin 4.8. Transfused in ER 1 bag of PRBC. Alert and oriented but very forgetful. Able to communicate needs. Noted with all overall rashes and scratch strange. On room air tolerating well. No complaint of pain or discomfort. Vital signs wnl. Kept clean and dry. Will endorse to next shift for continuity of care.
[2021-02-08 07:07] LABS: BASOPHILS # (AUTO) 0.1 K/uL (0.0-0.2); BASOPHILS % (AUTO) 1.5 % (0.0-2.0); EOSINOPHILS % (AUTO) 2.2 % (0.0-6.0); HEMATOCRIT 23 % (33-45); LYMPHOCYTES # (AUTO) 0.7 K/uL (0.8-4.8); LYMPHOCYTES % (AUTO) 10.3 % (20.0-44.0); MEAN CORPUSCULAR HGB CONC 31 g/dl (31.0-36.0); MEAN CORPUSCULAR VOLUME 80 fL (82-100); MONOCYTES # (AUTO) 0.7 K/uL (0.1-1.30); MONOCYTES % (AUTO) 10.2 % (2.0-12.0); NEUTROPHILS # (AUTO) 5.3 K/uL (1.8-8.9); NEUTROPHILS % (AUTO) 75.8 % (43.0-81.0); PLATELET COUNT (AUTO) 356 K/uL (150-450); RED BLOOD CELL COUNT(AUTO) 2.85 MIL/uL (4.0-5.2); WHITE BLOOD COUNT (AUTO) 6.9 K/uL (4.3-11.0)
[2021-02-08] MEDS ORDERED: PANTOPRAZOLE 40 MG TABLET.DR PO SCH (07:30)
[2021-02-08] MEDS: METOPROLOL TARTRATE 25 MG TABLET PO SCH ×2 (08:26→16:16)
[2021-02-08 08:52] LABS: CALCIUM, SERUM 8.9 mg/dL (8.5-10.1); CARBON DIOXIDE 21 mmol/L (21-32); CHLORIDE 112 mmol/L (98-107); CREATININE 1.8 mg/dL (0.6-1.3); GLUCOSE 135 mg/dL (74-106); PHOSPHORUS 3.5 mg/dL (2.5-4.9); POTASSIUM 4.3 mmol/L (3.5-5.1); SODIUM SERUM 147 mmol/L (136-145); UREA NITROGEN, BLOOD 38 mg/dL (7-18)
--- NOTE | 2021-02-08 08:54 | NUR ---
RN NOTES PT AWAKE AND DISORIENTED. PT IS A/O X1. SHE IS ON RA AND SAT >95% PT GIVEN 1 UNIT OF BLOOD BEFORE ADMISSION TO [facility]. PT H/H NOW 7.0/23. PER DR. LAINEZ, ORDERED ANOTHER UNIT OF BLOOD. BLOOD TRANSFUSION ORDER PLACED. PT ON TELE B/P: 157/68 AND HR 72. DIET REGULAR. WHEELS LEFT LOWEST POSTION AND CALL LIGHT WITHIN REACH
[2021-02-08] MEDS ORDERED: SERTRALINE HCL 50 MG TABLET PO SCH (09:00)
[2021-02-08] MEDS ORDERED: ASPIRIN EC 81 MG TABLET.DR PO SCH (09:00)
[2021-02-08] MEDS ORDERED: CLOPIDOGREL BISULFATE 75 MG TABLET PO SCH (09:00)
[2021-02-08] MEDS ORDERED: CHOLECALCIFEROL 1,000 UNIT TABLET (VIT D3) PO SCH (09:00)
[2021-02-08] MEDS ORDERED: busPIRone 5 MG TABLET PO SCH (09:00)
--- NOTE | 2021-02-08 13:53 | NUR ---
patient tolerating blood transfusion.
[2021-02-08] MEDS ORDERED: Z GUARD REMEDY 2 OZ OINT TP PRN (14:00)
[2021-02-08] MEDS ORDERED: IV 1/2NS 1000 ML 1,000 ML IV ONE (15:00)
--- NOTE | 2021-02-08 15:17 | NUR ---
patient refused naylor.
--- NOTE | 2021-02-08 15:22 | NUR ---
clarified with dr. hamilton if wants to cancel discharge r/t orders,per ok to discharge and cancel his orders.
--- NOTE | 2021-02-08 16:19 | NUR ---
PER CHARGE WINSOME, DO NOT ADMIN METOPROLOL DUE TO LOWE SYSTOLIC BP BEFORE BLOOD TRANSFUSION SBP 45. PT GETTING DISCHARGED AT 1700
--- NOTE | 2021-02-08 17:21 | NUR ---
[facility] MEDICINE SPECIALIST NOTES PT PU BY EMS. PT STABLE AND SENT TO SNF/SHELTER. HEP LOCK REMOVED
== END 2021-02-08 17:24 | DRG 811 ==
LOC: ER 17:13 → TELE1 23:27 → MEDSG1 02-08 08:09
PROVIDERS: ADMIT Internal Medicine; ATTEND Internal Medicine
PROC: 30233N1 Transfusion of Nonautologous Red Blood Cells into Peripheral Vein, Percutaneous Approach (ICD-10-PCS; principal; 2021-02-07)
DX: D46.9 Myelodysplastic syndrome, unspecified (principal); G93.41 Metabolic encephalopathy; N17.0 Acute kidney failure with tubular necrosis; E87.0 Hyperosmolality and hypernatremia; E86.0 Dehydration; Z20.822 Contact with and (suspected) exposure to COVID-19; E11.9 Type 2 diabetes mellitus without complications; E78.5 Hyperlipidemia, unspecified; E86.1 Hypovolemia; F03.90 Unspecified dementia, unspecified severity, without behavioral disturbance, psychotic disturbance, mood disturbance, and anxiety; I10 Essential (primary) hypertension; Z79.84 Long term (current) use of oral hypoglycemic drugs
CPT/HCPCS: 36415; 80048-TC; 80076-TC; 82962-TC; 84100-TC; 85025-TC; 86850-TC; 87081-TC; C9803; G0378; J1815; J3490; J7050; J7060; P9016; U0003

== ENCOUNTER 2021-04-09 16:11 | Inpatient (IN) | payer MEDICARE, MEDICAID ==
[~2021-04-09] VITALS: Ht 152.4 cm; Wt 54.4 kg
[~2021-04-09 16:11] MED LIST changes: +GLIM1TAB18 PO; -MEGE800O PO; +METF-442 PO; +ONDA-97 PO; -ONDA-97 SL
[2021-04-09] MEDS ORDERED: ATOR40TA PO (16:17)
[2021-04-09] MEDS ORDERED: CLOP75TA15 PO (16:17)
[2021-04-09] MEDS ORDERED: [UNRECOGNIZED DRUG - CODE] PO (16:17)
--- NOTE | 2021-04-09 16:44 | NUR ---
PT SENT BY PMD FOR WEAKNESS AND NOT EATING FOR AN UNKNOWN LENGTH OF TIME. HX OF DEMENTIA. A&Ox0. AWAKE BUT UNRESPONSIVE TO COMMANDS. NO GAS TREATER STRENGTH.
--- NOTE | 2021-04-09 16:58 | NUR ---
DR LEE AT BEDSIDE
[2021-04-09 17:20] LABS: BASOPHILS # (AUTO) 0.2 K/uL (0.0-0.2); BASOPHILS % (AUTO) 2.3 % (0.0-2.0); EOSINOPHILS % (AUTO) 8.1 % (0.0-6.0); HEMATOCRIT 26 % (33-45); LYMPHOCYTES # (AUTO) 0.8 K/uL (0.8-4.8); MEAN CORPUSCULAR HGB CONC 27 g/dl (31.0-36.0); MEAN CORPUSCULAR VOLUME 76 fL (82-100); MONOCYTES # (AUTO) 0.6 K/uL (0.1-1.30); MONOCYTES % (AUTO) 8.4 % (2.0-12.0); NEUTROPHILS # (AUTO) 5.1 K/uL (1.8-8.9); NEUTROPHILS % (AUTO) 70.2 % (43.0-81.0); PLATELET COUNT (AUTO) 252 K/uL (150-450); RED BLOOD CELL COUNT(AUTO) 3.36 MIL/uL (4.0-5.2); WHITE BLOOD COUNT (AUTO) 7.3 K/uL (4.3-11.0)
[2021-04-09 17:26] LABS: HEMOGLOBIN 6.9 g/dL (11.5-14.8)
--- NOTE | 2021-04-09 17:33 | NUR ---
FOLDING MACHINE OPERATOR AT BEDSIDE
[2021-04-09 17:34] LABS: ALANINE AMINOTRANSFERASE 34 U/L (12-78); ALBUMIN 3.1 g/dL (3.4-5.0); ALKALINE PHOSPHATASE 75 U/L (46-116); ASPARTATE AMINOTRANSFERASE 22 U/L (15-37); BILIRUBIN,DIRECT 0.2 mg/dL (0.0-0.2); BILIRUBIN,TOTAL 0.4 mg/dL (0.2-1.0); CALCIUM, SERUM 10.1 mg/dL (8.5-10.1); CARBON DIOXIDE 19 mmol/L (21-32); CHLORIDE 123 mmol/L (98-107); CREATININE 1.6 mg/dL (0.6-1.3); GLUCOSE 158 mg/dL (74-106); POTASSIUM 4.4 mmol/L (3.5-5.1); TOTAL PROTEIN, SERUM 7.7 g/dL (6.4-8.2); UREA NITROGEN, BLOOD 33 mg/dL (7-18)
[2021-04-09 17:37] LABS: ACETAMINOPHEN < 2 ug/ml (10-30); ALCOHOL, BLOOD < 3 mg/dL (0-0); SODIUM SERUM 157 mmol/L (136-145)
--- NOTE | 2021-04-09 17:50 | NUR ---
PT TAKEN TO CT
[2021-04-09 18:48] LABS: BAND % (MANUAL) 1 % (0.0-5.0); EOSINOPHILS % (MANUAL) 12 % (0-4); LYMPHOCYTES % (MANUAL) 7 % (16-48); NEUTROPHILS % (MANUAL) 80 (42-76)
--- NOTE | 2021-04-09 19:15 | NUR ---
rec'd report from ROSY Holder for isael
[2021-04-09 19:27] LABS: IRON, SERUM 19 ug/dl (50-175); TOTAL IRON BINDING CAPACITY 325 ug/dl (250-450)
[2021-04-09] MEDS ORDERED: IV NS 0.9% 1,000 ML IV ONE ×2 (20:00→22:00)
--- NOTE | 2021-04-09 20:05 | NUR ---
PT RESTING IN BED, ATTACHED TO MONITOR AND POX.
--- NOTE | 2021-04-09 21:19 | NUR ---
ATTEMPTED TO GIVE REPORT, NO RN ASSIGNED, WILL CALL BACK
--- NOTE | 2021-04-09 21:39 | NUR ---
ATTEMPTED TO GIVE REPORT, ACCEPTING NURSE IS BUSY WITH ANOTHER PT. STAFF STATES WE WILL RECEIVE CALL BACK.
--- NOTE | 2021-04-09 21:46 | NUR ---
REPORT GIVEN TO ROSY BERRY FOR [facility]O
[2021-04-09] MEDS ORDERED: ACETAMINOPHEN 325 MG TABLET PO PRN (22:00)
[2021-04-09] MEDS ORDERED: DEXTROSE 50%-WATER 50 ML DISP.SYRIN IV PRN (22:00)
[2021-04-09] MEDS ORDERED: MAGNESIUM HYDROXIDE 30 ML UDC PO PRN (22:00)
[2021-04-09] MEDS ORDERED: DOCUSATE SODIUM 100 MG CAPSULE PO PRN (22:00)
[2021-04-09] MEDS ORDERED: Z GUARD REMEDY 2 OZ OINT TP PRN (22:00)
[2021-04-09] MEDS ORDERED: ONDANSETRON HCL/PF 4 MG/2 ML VIAL IVP PRN (22:00)
[2021-04-09] MEDS ORDERED: IBUPROFEN 400 MG TABLET PO PRN (22:00)
[2021-04-09] MEDS ORDERED: MAG HYDROX/AL HYDROX/SIMETH 30 ML UDC PO PRN (22:00)
--- NOTE | 2021-04-09 22:10 | NUR ---
GAVE REPORT TO ROSY YOUNG
--- NOTE | 2021-04-09 22:12 | NUR ---
PT TRANSPORTED WITH [facility] PROTOCOL
--- NOTE | 2021-04-09 22:25 | NUR ---
BLIND CLEANER NOTE: RECEIVED PATIENT FROM ER WITH A DX OF HYPERNATREMIA, BY ADMITTING DR THOMPSON. PATIENT A/O X2, URDU SPEAKING ONLY, NO SOB, NO DISTRESS, NO DISCOMFORT NOTED. DENIES PAIN. IVF NS 0.9% AT 75 ML STARTED, NO S/S OF INFILTRATION NOTED. PATIENT HAS RASH ALL OVER BODY. PICTURES TAKEN AND DOCUMENTED IN THE CHART. ORIENTED PATIENT TO THE ROOM, ADMITTING ORDERS CHECKED, ALL NEEDS ATTENDED. CALL LIGHT WITHIN REACH, SIDE RAILS UP X2, AND BED AT LOWEST POSITION. V/S STABLE, CONTINUING TO MONITOR.
[2021-04-09 22:30] VITALS: BP 149/51
[2021-04-09] MEDS ORDERED: ONDANSETRON 4 MG TAB.RAPDIS PO PRN (22:30)
[2021-04-09] MEDS ORDERED: LOPERAMIDE HCL (2 MG CAP) 2 MG CAPSULE PO PRN (22:30)
[2021-04-09] MEDS: BLOOD SUGAR DIAGNOSTIC 1 EACH STRIP IN SCH (22:38)
[2021-04-09] MEDS: ATORVASTATIN 40 MG TABLET PO SCH (22:41)
[2021-04-09] MEDS: MIRTAZAPINE 15 MG TABLET PO SCH (22:41)
[2021-04-10] VITALS (12 sets, daily range): BP systolic 103–144; BP diastolic 52–74
--- NOTE | 2021-04-10 01:02 | NUR ---
MS RN NOTE PT IN BED HALF SLEEPY, AROUSABLE. TRIED TO GET HER CONSENT FOR BLOOD TRANSFUSION, BUT PT VERBALLY SAY OK BUT UNABLE TO SIGN. TRIED TO REACH FAMILY MEMEBER BUT NO RESPONSE. INFORMED DR THOMPSON PER MD DO HGB AGAIN, IF HBG GRATER THAN 7 THEN HOLD BLOOD TRANSFUSION TILL AM. WILL RECHECK HGB LEVEL
[2021-04-10 02:08] LABS: BASOPHILS # (AUTO) 0.1 K/uL (0.0-0.2); BASOPHILS % (AUTO) 1.2 % (0.0-2.0); EOSINOPHILS % (AUTO) 11.9 % (0.0-6.0); HEMATOCRIT 23 % (33-45); LYMPHOCYTES # (AUTO) 0.8 K/uL (0.8-4.8); LYMPHOCYTES % (AUTO) 12.9 % (20.0-44.0); MEAN CORPUSCULAR HGB CONC 29 g/dl (31.0-36.0); MEAN CORPUSCULAR VOLUME 73 fL (82-100); MONOCYTES # (AUTO) 0.7 K/uL (0.1-1.30); MONOCYTES % (AUTO) 10.5 % (2.0-12.0); NEUTROPHILS % (AUTO) 63.5 % (43.0-81.0); PLATELET COUNT (AUTO) 212 K/uL (150-450); WHITE BLOOD COUNT (AUTO) 6.2 K/uL (4.3-11.0)
[2021-04-10 02:15] LABS: HEMOGLOBIN 6.7 g/dL (11.5-14.8)
--- NOTE | 2021-04-10 02:52 | NUR ---
BALE SEWER NOTES: HEMOGLOBIN DROPPED FROM 6.9 TO 6.7, DOCTOR JAY NOTIFIED, HE STATED TO WAIT FOR THE MORNING AND TRY TO GET CONSENT AGAIN AND SEE WHAT DOCTOR ROMAN WANTS US TO DO.
[2021-04-10 04:08] LABS: EOSINOPHILS % (MANUAL) 11 % (0-4); LYMPHOCYTES % (MANUAL) 8 % (16-48); MONOCYTES % (MANUAL) 6 % (0-11.0); NEUTROPHILS % (MANUAL) 75 (42-76)
--- NOTE | 2021-04-10 06:33 | NUR ---
RN CLOSING NOTES PATIENT SLEEPING THROUGH THE NIGHT, SHOWS NO SIGNS OF DISTRESS, NO SOB. PATIENT CITIZEN OF [place] SPEAKING, COOPERATIVE, EASILY AROUSED. WILL CONTINUE TO MONITOR.
[2021-04-10 07:00] LABS: BASOPHILS # (AUTO) 0.1 K/uL (0.0-0.2); BASOPHILS % (AUTO) 1.4 % (0.0-2.0); HEMATOCRIT 22 % (33-45); LYMPHOCYTES # (AUTO) 0.8 K/uL (0.8-4.8); LYMPHOCYTES % (AUTO) 12.4 % (20.0-44.0); MEAN CORPUSCULAR HGB CONC 28 g/dl (31.0-36.0); MEAN CORPUSCULAR VOLUME 74 fL (82-100); MONOCYTES # (AUTO) 0.7 K/uL (0.1-1.30); MONOCYTES % (AUTO) 10.6 % (2.0-12.0); NEUTROPHILS % (AUTO) 61.6 % (43.0-81.0); PLATELET COUNT (AUTO) 218 K/uL (150-450); RED BLOOD CELL COUNT(AUTO) 2.95 MIL/uL (4.0-5.2); WHITE BLOOD COUNT (AUTO) 6.5 K/uL (4.3-11.0)
[2021-04-10 07:10] LABS: CALCIUM, SERUM 9.2 mg/dL (8.5-10.1); CREATININE 1.3 mg/dL (0.6-1.3); MAGNESIUM 1.5 mg/dL (1.8-2.4); PHOSPHORUS 2.1 mg/dL (2.5-4.9); POTASSIUM 3.7 mmol/L (3.5-5.1)
[2021-04-10 07:30] LABS: PREALBUMIN 11.3 MG/DL (18.0-35.7)
--- NOTE | 2021-04-10 07:30 | NUR ---
MS RN OPENING NOTES RECEIVED PT RESTING ON BED, EASILY AROUSABLE. MAY CALLED FROM LAB AND REPORTED FOR PATIENT'S HGB AT 6.2. WITH SIGNS OF PAIN OR DISCOMFORT AT THIS TIME. WITH IV ACCESS AT RIGHT FA G20 WITH NS AT 75ML/HR INFUSING WELL. SAFETY MEASURES IN PLACE. CALL LIGHT WITHIN REACH. BED ON LOWEST AND LOCKED POSITION. SIDE RAILS UP X2. WILL CONTINUE TO MONITOR.
[2021-04-10 07:40] LABS: HEMOGLOBIN 6.2 g/dL (11.5-14.8)
[2021-04-10] MEDS: PANTOPRAZOLE 40 MG TABLET.DR PO SCH (07:52)
[2021-04-10] MEDS: BLOOD SUGAR DIAGNOSTIC 1 EACH STRIP IN SCH ×4 (07:53→22:48)
[2021-04-10] MEDS: ASPIRIN EC 81 MG TABLET.DR PO SCH (09:00)
[2021-04-10] MEDS ORDERED: GLUCERNA 1.2 1,000 ML BOTTLE GT SCH (09:00)
[2021-04-10] MEDS: GLIMEPIRIDE 1 MG TABLET PO SCH (09:08)
[2021-04-10] MEDS: CLOPIDOGREL BISULFATE 75 MG TABLET PO SCH (09:08)
[2021-04-10] MEDS: busPIRone 5 MG TABLET PO SCH (09:08)
[2021-04-10] MEDS: CHOLECALCIFEROL 1,000 UNIT TABLET (VIT D3) PO SCH (09:09)
[2021-04-10] MEDS: SERTRALINE HCL 50 MG TABLET PO SCH (09:09)
[2021-04-10] MEDS: METOPROLOL TARTRATE 25 MG TABLET PO SCH ×2 (09:09→16:14)
[2021-04-10 09:35] LABS: EOSINOPHILS % (MANUAL) 12 % (0-4); LYMPHOCYTES % (MANUAL) 10 % (16-48); MONOCYTES % (MANUAL) 8 % (0-11.0); NEUTROPHILS % (MANUAL) 70 (42-76)
--- NOTE | 2021-04-10 10:55 | NUR ---
MS RN NOTES PATIENT FOR BLOOD TRANSFUSION 1 UNIT PRBC PER DOCTOR'S ORDER FOR HGB IS 6.2. BLOOD PRODUCT AND VITAL SIGNS CHECKED WITH RN CASS QUILES. WITH STABLE VITAL SIGNS. WILL MONITOR PATIENT FOR ANY BLOOD REACTION WITHIN 15MINUTES.
--- NOTE | 2021-04-10 11:05 | NUR ---
MS RN NOTES WITH STABLE VITAL SIGNS. ADJUSTED FLOW RATE FROM 60ML/HR TO 100ML/HR. WILL CONTINUE TO MONITOR.
[2021-04-10] MEDS: IV D5W 1,000 ML IV SCH (12:33)
[2021-04-10] MEDS: GLUCERNA SHAKE 237 ML CAN PO SCH ×2 (12:41→16:16)
[2021-04-10] MEDS: INSULIN REGULAR, HUMAN 100 UNIT/ML 3 ML VIAL SQ PRN ×3 (13:10→22:50)
[2021-04-10] MEDS: Magnesium 1GM/D5W 100ML PREMIX 100 ML IV SCH ×2 (14:26→16:15)
[2021-04-10] MEDS ORDERED: K PHOS NEUTRAL 250 MG TABLET PO ONE (15:30)
[2021-04-10 17:22] LABS: HEMOGLOBIN 7.9 g/dL (11.5-14.8)
--- NOTE | 2021-04-10 17:54 | NUR ---
RELAYED H/H POST BLOOD TRANSFUSION,PER KARLOS NAVARRO TO HOLD 2ND UNIT OF BLOOD ,WILL RECHECK LABS IN AM.
--- NOTE | 2021-04-10 18:31 | NUR ---
MS RN CLOSING NOTES PATIENT RESTING ON BED, EASILY AROUSABLE. ON ROOM AIR TOLERATING WELL. NO SOB NOTED. NOT IN DISTRESS. WITH NO SIGNS OF PAIN OR DISCOMFORT AT THIS TIME. WITH IV ACCESS AT RIGHT FA G20 WITH D5W AT 75ML/HR INFUSING WELL. SAFETY MEASURES IN PLACE. CALL LIGHT WITHIN REACH. BED ON LOWEST AND LOCKED POSITION. SIDE RAILS UP X2. WILL ENDORSE TO NEXT SHIFT FOR [facility].
--- NOTE | 2021-04-10 19:30 | NUR ---
RN NOTE PT RECEIVED IN BED. PT IS ON ROOM AIR SHOWING NO S/S OF RESP DISTRESS/SOB. BREATHING EVEN AND UNLABORED. PT IS A/0X3, KYRGYZ SPEAKING. CCHO DIET. IV ACCESS NOTED ON RIGHT FOREARM #20. LINE FLUSHED, PATENT, AND INTACT WITH NO S/SX OF INFILTRATION. D5W RUNNING AT 75 ML/HR. ALL SAFETY MEASURES IMPLEMENTED. CALL LIGHT WITHIN REACH. BED ALARM ON. BED LOCKED AND IN LOWEST POSITION. WILL CONTINUE TO MONITOR AND ASSESS FOR ANY CHANGES DURING SHIFT.
[2021-04-10] MEDS: MIRTAZAPINE 15 MG TABLET PO SCH (22:37)
[2021-04-10] MEDS: ATORVASTATIN 40 MG TABLET PO SCH (22:37)
[2021-04-11] VITALS (15 sets, daily range): BP systolic 97–161; BP diastolic 49–113
[2021-04-11] MEDS: IV D5W 1,000 ML IV SCH ×2 (01:27→14:39)
--- NOTE | 2021-04-11 06:35 | NUR ---
RN NOTE NO CHANGES IN PT CONDITION DURING SHIFT. PT IS ON ROOM AIR SHOWING NO S/S OF RESP DISTRESS/SOB. BREATHING EVEN AND UNLABORED. IV ACCESS NOTED ON RIGHT FOREARM #20. LINE FLUSHED, PATENT, AND INTACT WITH NO S/SX OF INFILTRATION. D5W RUNNING AT 75 ML/HR. ALL DUE MEDS GIVEN ORDERED. PT KEPT CLEAN AND COMFORTABLE. ALL SAFETY MEASURES IMPLEMENTED. CALL LIGHT WITHIN REACH. BED ALARM ON. BED LOCKED AND IN LOWEST POSITION. WILL ENDORSE TO MORNING SHIFT RN FOR LEO.
[2021-04-11 07:19] LABS: CALCIUM, SERUM 8.7 mg/dL (8.5-10.1); CREATININE 1.2 mg/dL (0.6-1.3); MAGNESIUM 1.9 mg/dL (1.8-2.4); PHOSPHORUS 1.9 mg/dL (2.5-4.9); POTASSIUM 3.5 mmol/L (3.5-5.1)
--- NOTE | 2021-04-11 07:35 | NUR ---
RN OPENING NOTES RECEIVED PT SLEEPING IN BED WITH R FA 20G IV RUNNING D5W @75ML/HR. PT SHOWING NO S/SX OF ACUTE RESPIRATORY DISTRESS AT THIS TIME. SAFETY MEASURES IN PLACE WITH BED IN LOWEST LOCKED POSITION, SIDE RAILS UP X3, BED ALARM ON AND CALL LIGHT WITHIN REACH.
[2021-04-11 07:36] LABS: BASOPHILS % (AUTO) 0.5 % (0.0-2.0); EOSINOPHILS % (AUTO) 13.9 % (0.0-6.0); HEMATOCRIT 24 % (33-45); HEMOGLOBIN 7.4 g/dL (11.5-14.8); LYMPHOCYTES # (AUTO) 0.8 K/uL (0.8-4.8); LYMPHOCYTES % (AUTO) 15.1 % (20.0-44.0); MEAN CORPUSCULAR HGB CONC 31 g/dl (31.0-36.0); MEAN CORPUSCULAR VOLUME 75 fL (82-100); MONOCYTES # (AUTO) 0.6 K/uL (0.1-1.30); NEUTROPHILS # (AUTO) 3.2 K/uL (1.8-8.9); NEUTROPHILS % (AUTO) 59.5 % (43.0-81.0); PLATELET COUNT (AUTO) 180 K/uL (150-450); RED BLOOD CELL COUNT(AUTO) 3.24 MIL/uL (4.0-5.2); WHITE BLOOD COUNT (AUTO) 5.3 K/uL (4.3-11.0)
[2021-04-11] MEDS: BLOOD SUGAR DIAGNOSTIC 1 EACH STRIP IN SCH ×4 (07:49→22:43)
[2021-04-11] MEDS: GLIMEPIRIDE 1 MG TABLET PO SCH (08:07)
[2021-04-11] MEDS: ASPIRIN EC 81 MG TABLET.DR PO SCH (08:07)
[2021-04-11] MEDS: PANTOPRAZOLE 40 MG TABLET.DR PO SCH (08:07)
[2021-04-11] MEDS: SERTRALINE HCL 50 MG TABLET PO SCH (08:07)
[2021-04-11] MEDS: busPIRone 5 MG TABLET PO SCH (08:07)
[2021-04-11] MEDS: CHOLECALCIFEROL 1,000 UNIT TABLET (VIT D3) PO SCH (08:08)
[2021-04-11] MEDS: METOPROLOL TARTRATE 25 MG TABLET PO SCH ×2 (08:08→16:42)
[2021-04-11] MEDS: CLOPIDOGREL BISULFATE 75 MG TABLET PO SCH (08:08)
[2021-04-11] MEDS: GLUCERNA SHAKE 237 ML CAN PO SCH ×3 (08:09→17:41)
--- NOTE | 2021-04-11 10:15 | NUR ---
RN NOTE BEGAN INFUSING PRBC @1000, NO S/SX OF REACTION. WILL INCREASE PER BUS PERSON DISHWASHER ORDER TO INFUSE OVER 3 HOURS.
[2021-04-11] MEDS: INSULIN REGULAR, HUMAN 100 UNIT/ML 3 ML VIAL SQ PRN ×3 (12:05→22:41)
[2021-04-11] MEDS ORDERED: K PHOS NEUTRAL 250 MG TABLET PO ONE (13:00)
--- NOTE | 2021-04-11 18:10 | NUR ---
RN NOTE BEGAN INFUSING PRBC 1 UNIT PER BLACK OFF WORKER ORDER, NO S/SX OF REACTION. WILL INCREASE TO INFUSE OVER ONE HOUR.
--- NOTE | 2021-04-11 18:46 | NUR ---
RN CLOSING NOTE PT RECEIVING PRBC 1 UNIT ON LEFT HAND 20G. NO S/SX OF REACTION. PT VITAL SIGNS STABLE WITH BP 136/71, HR 61, RR 18, TEMP IS 97.4. PT TO RECEIVE AN ADDITIONAL UNIT OF PRBC PER MACHINE REPAIRMAN ORDER. WILL ENDORSE TO NEXT SHIFT FOR CONTINUITY OF CARE. PT CLEAN AND DRY, APPLIED TOPICAL CREAM OVER BACK, ARMS, AND CHEST. SAFETY MEASURES IN PLACE WITH BED IN LOWEST LOCKED POSITION, SIDE RAILS UP X3, CALL LIGHT WITHIN REACH AND ALL NEEDS ATTENDED AT THIS TIME.
--- NOTE | 2021-04-11 20:00 | NUR ---
ms rn notes received pts in bed awake a/o x3 able to make needs known , on r/a no sob no distress noted , v/s stable afebrile on 2nd unit of prbc on progress no ase noted , all needs attended too call light within reach keep pts clean dry and comfortable on right wrist G22 intact and patent .will continue to monitor pts.
--- NOTE | 2021-04-11 20:15 | NUR ---
ms rn notes 3rd unit of prbc started at 2014 hrs v/s bp 133/69 pr 69 rr 20 temp 96.6 no ase noted no sob no distress noted will continue to monitor pts.
--- NOTE | 2021-04-11 20:19 | NUR ---
ms rn notes 2nd unit prbc completed at 2009 with no ase noted.
[2021-04-11] MEDS: ATORVASTATIN 40 MG TABLET PO SCH (21:32)
[2021-04-11] MEDS: MIRTAZAPINE 15 MG TABLET PO SCH (21:32)
--- NOTE | 2021-04-11 22:00 | NUR ---
ms rn notes due meds given as ordered no ase noted .
--- NOTE | 2021-04-11 22:47 | NUR ---
ms rn notes Blood sugar at 10pm is 171 mg/dl 3 units of regular insulin given per sliding scale
--- NOTE | 2021-04-11 23:05 | NUR ---
ms rn notes 3rd unit of prbc completed with no ase noted , will continue to monitor pts v/s stable afebrile.
[2021-04-12] MEDS: IV D5W 1,000 ML IV SCH ×4 (02:12→22:13)
[2021-04-12 04:00] VITALS: BP 124/72
--- NOTE | 2021-04-12 06:31 | NUR ---
ms rn notes Pts remain in bed awake a/ox3 no sob no distress noted , v/s stable afebrile remains on ivf d5w at 125cc/hr infusing well. pts for d/c planning today , will endorse to rn day shift for continuity of care.
[2021-04-12 07:29] LABS: BASOPHILS % (AUTO) 0.5 % (0.0-2.0); EOSINOPHILS % (AUTO) 11.9 % (0.0-6.0); HEMATOCRIT 42 % (33-45); HEMOGLOBIN 12.9 g/dL (11.5-14.8); LYMPHOCYTES # (AUTO) 0.8 K/uL (0.8-4.8); LYMPHOCYTES % (AUTO) 11.6 % (20.0-44.0); MEAN CORPUSCULAR HGB CONC 31 g/dl (31.0-36.0); MEAN CORPUSCULAR VOLUME 83 fL (82-100); MONOCYTES # (AUTO) 0.6 K/uL (0.1-1.30); MONOCYTES % (AUTO) 9.1 % (2.0-12.0); NEUTROPHILS # (AUTO) 4.6 K/uL (1.8-8.9); NEUTROPHILS % (AUTO) 66.9 % (43.0-81.0); PLATELET COUNT (AUTO) 136 K/uL (150-450); WHITE BLOOD COUNT (AUTO) 6.8 K/uL (4.3-11.0)
[2021-04-12] MEDS: BLOOD SUGAR DIAGNOSTIC 1 EACH STRIP IN SCH ×4 (07:45→22:23)
[2021-04-12] MEDS: GLUCERNA SHAKE 237 ML CAN PO SCH ×3 (07:46→17:15)
--- NOTE | 2021-04-12 07:51 | NUR ---
MS RN OPENING NOTES RECEIVED PATIENT IN BED, ASLEEP. PATIENT ON ROOM AIR; BREATHING EVEN AND UNLABORED NO SOB NOTED. NO S/S OF PAIN SUCH FACIAL GRIMACING, MOANING OR GUARDING. IV ACCESS ON L WRIST G # 22 RUNNING D5W. SAFETY PRECAUTIONS IN PLACE; BED IN LOW POSITION AND LOCKED; RAILS UP x2, CALL LIGHT WITHIN REACH. WILL CONTINUE TO MONITOR PATIENT.
[2021-04-12 07:56] LABS: CALCIUM, SERUM 8.1 mg/dL (8.5-10.1); CREATININE 1.1 mg/dL (0.6-1.3); MAGNESIUM 1.8 mg/dL (1.8-2.4); PHOSPHORUS 2.4 mg/dL (2.5-4.9); POTASSIUM 3.8 mmol/L (3.5-5.1)
[2021-04-12] MEDS: CLOPIDOGREL BISULFATE 75 MG TABLET PO SCH (08:47)
[2021-04-12] MEDS: SERTRALINE HCL 50 MG TABLET PO SCH (08:47)
[2021-04-12] MEDS: busPIRone 5 MG TABLET PO SCH (08:47)
[2021-04-12] MEDS: PANTOPRAZOLE 40 MG TABLET.DR PO SCH (08:47)
[2021-04-12] MEDS: CHOLECALCIFEROL 1,000 UNIT TABLET (VIT D3) PO SCH (08:48)
[2021-04-12] MEDS: ASPIRIN EC 81 MG TABLET.DR PO SCH (08:48)
[2021-04-12] MEDS: GLIMEPIRIDE 1 MG TABLET PO SCH (08:48)
[2021-04-12] MEDS: METOPROLOL TARTRATE 25 MG TABLET PO SCH ×2 (08:48→16:06)
[2021-04-12] MEDS: INSULIN REGULAR, HUMAN 100 UNIT/ML 3 ML VIAL SQ PRN ×2 (08:53→22:22)
[2021-04-12] MEDS ORDERED: NUT.237L45 PO (11:03)
[2021-04-12 12:02] VITALS: BP 137/87
[2021-04-12] MEDS ORDERED: K PHOS NEUTRAL 250 MG TABLET PO ONE (15:30)
--- NOTE | 2021-04-12 18:54 | NUR ---
MS RN CLOSING NOTES PATIENT REMAINS IN BED, ASLEEP. PATIENT ON ROOM AIR; BREATHING EVEN AND UNLABORED NO SOB NOTED. NO COMPLAINS OF PAIN DURING SHIFT. IV ACCESS ON L WRIST. ALL NEEDS ATTENDED DURING THE DAY. AWAITING DISCHARGE, ALL DOCUMENTATION READY. PATIENT REFUSED PICTURES; WANTED TO KEEP SLEEPING. SAFETY PRECAUTIONS IN PLACE; BED IN LOW POSITION AND LOCKED; RAILS UP x2, CALL LIGHT WITHIN REACH. WILL ENDORSE TO BENCH HAND MACHINE NURSE.
[2021-04-12] MEDS: ATORVASTATIN 40 MG TABLET PO SCH (22:07)
[2021-04-12] MEDS: MIRTAZAPINE 15 MG TABLET PO SCH (22:08)
== END 2021-04-13 01:58 | DRG 694 ==
LOC: ER 16:14 → TELE1 21:11 → MEDSG1 23:31
PROVIDERS: ADMIT Family Medicine; ATTEND Registered Nurse
PROC: 30233N1 Transfusion of Nonautologous Red Blood Cells into Peripheral Vein, Percutaneous Approach (ICD-10-PCS; principal; 2021-04-10)
DX: D46.9 Myelodysplastic syndrome, unspecified (principal); N17.0 Acute kidney failure with tubular necrosis; E44.1 Mild protein-calorie malnutrition; E87.0 Hyperosmolality and hypernatremia; R62.7 Adult failure to thrive; E88.09 Other disorders of plasma-protein metabolism, not elsewhere classified; D63.8 Anemia in other chronic diseases classified elsewhere; E86.9 Volume depletion, unspecified; D50.9 Iron deficiency anemia, unspecified; E11.9 Type 2 diabetes mellitus without complications; I10 Essential (primary) hypertension; F03.90 Unspecified dementia, unspecified severity, without behavioral disturbance, psychotic disturbance, mood disturbance, and anxiety; Z86.73 Personal history of transient ischemic attack (TIA), and cerebral infarction without residual deficits; Z79.84 Long term (current) use of oral hypoglycemic drugs; E78.5 Hyperlipidemia, unspecified; Z79.02 Long term (current) use of antithrombotics/antiplatelets; Z68.23 Body mass index [BMI] 23.0-23.9, adult; Z20.822 Contact with and (suspected) exposure to COVID-19
CPT/HCPCS: 36415; 70450-TC; 80048-TC; 80061-TC; 80076-TC; 82728-TC; 82962-TC; 83540-TC; 83735-TC; 84100-TC; 84134-TC; 85025-TC; 85027-TC; 86850-TC; 87081-TC; G0378; G0480; J1815; J3475; J7030; J7050; J7070; P9016; U0003